=== PATIENT | female | born 1960 | race Hispanic/Latino ===

== ENCOUNTER 2017-08-04 14:51 | Inpatient (IN) | payer OTHER ==
[2017-08-04] MEDS ORDERED: Sodium Chloride 0.9% 500 ML IV STA (16:21)
[2017-08-04 16:52] LABS: BASO # 0.02 K/mm3 (0.0-2.0); BASO % 0.2 % (0.0-3.0); EOS # 0.1 (0.0-0.7); EOS % 1.2 % (1.5-5.0); GRAN # 5.32 (1.4-6.5); GRAN % 58.9 % (50.0-68.0); HEMATOCRIT 38.9 % (36.0-48.0); LYMPH % 33.2 % (22.0-35.0); MEAN CORPUSCULAR HEMOGLOBIN 29.6 pg (25.0-35.0); MEAN CORPUSCULAR HGB CONC 33.7 g/dl (31.0-37.0); MEAN PLATELET VOLUME 10.4 fl (7.0-11.0); MONO # 0.6 (0.1-0.6); MONO % 6.5 % (1.0-6.0); RED CELL DISTRIBUTION WIDTH 13.3 % (11.5-14.5)
[2017-08-04 17:03] LABS: INR 0.97 (0.93-1.08); PARTIAL THROMBOPLASTIN TIME 27.5 Seconds (23.7-30.8)
[2017-08-04 17:04] LABS: ALB/GLOB RATIO 1.7 (1.1-1.8); ALKALINE PHOSPHATASE 74 U/L (38-126); ALT/SGPT 24 U/L (7-56); AST/SGOT 21 U/L (14-36); BILIRUBIN,TOTAL 0.4 mg/dL (0.2-1.3); BLOOD UREA NITROGEN 16 mg/dL (7-21); CALCIUM 9.6 mg/dL (8.4-10.5); CARBON DIOXIDE 23 mmol/L (21-33); CHLORIDE 103 mmol/L (98-107); GFR AFRICAN-AMERICAN > 60; GLUCOSE,RANDOM 141 mg/dL (70-110); LIPASE 108 U/L (23-300); SODIUM 142 mmol/L (132-148); TOTAL PROTEIN 7.2 g/dL (5.8-8.3)
[2017-08-04] MEDS ORDERED: Iohexol 350 MG/100 ML VIAL ONE (17:11)
--- NOTE | 2017-08-04 17:30 | ED PDOC ---
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 Patient's states that the patient has 2 days of diarrhea, after eating take out pizza, but is without diarrhea today. Otherwise: (-) nausea / vomiting, (-) diarrhea today, (-) fever, (-) travel, (- ) sick contacts, (-) recent antibiotic use, (-) hematuria, (-) melena, (-) hematochezia, (-) prior endoscopy / colonoscopy. Has history of prior abdominal surgery - 2 c-sections. Past Medical History - Provider Review Nursing Documentation Reviewed: Yes - Infectious Disease Hx of Infectious Diseases: None - Reproductive Menopause: Yes - Cardiac Hx Cardiac Disorders: Yes (left carotid stenosis) Hx Congestive Heart Failure: No Hx Hypertension: No - Pulmonary Hx Chronic Obstructive Pulmonary Disease (COPD): No - Neurological HX Cerebrovascular Accident: Yes (march 2016, left mca cva w rt hemiparesis) - HEENT Other/Comment: Wears Glasses - Renal Hx Renal Failure: No - Endocrine/Metabolic Hx Diabetes Mellitus Type 1: No Hx Diabetes Mellitus Type 2: Yes Hx Hypothyroidism: No - Hematological/Oncological Hx Cancer: No - Integumentary Hx Dermatological Disorder: No Hx Basal Cell Carcinoma: No Hx Eczema: No Hx Melanoma: No Hx Psoriasis: No Hx Squamous Cell Carcinoma: No - Musculoskeletal/Rheumatological Hx Arthritis: No Hx Rheumatoid Arthritis: No - Gastrointestinal Hx Gastroesophageal Reflux: No - Genitourinary/Gynecological Hx Genitourinary Disorders: No Hx Hematuria: No Hx Incontinence: Yes Hx Sexually Transmitted Diseases: No Hx Urinary Tract Infection: No - Psychiatric Hx Psychophysiologic Disorder: No Hx Anxiety: No Hx Bipolar Disorder: No Hx Depression: No Hx Emotional Abuse: No Hx Hallucinations: No Hx Panic Disorder: No Hx Post Traumatic Stress Disorder: No Hx Psychosis: No Hx Physical Abuse: No Hx Schizophrenia: No Hx Sexual Abuse: No Hx Substance Use: No - Surgical History Other/Comment: - Anesthesia Hx Anesthesia: Yes Hx Anesthesia Reactions: No Family/Social History - Physician Review Nursing Documentation Reviewed: Yes Family/Social History: Other (diverticulitis) Smoking Status: Heavy Smoker > 10 Cigarettes Daily Hx Alcohol Use: No Hx Substance Use: No Allergies/Home Meds Allergies/Adverse Reactions: Allergies No Known Allergies Allergy (Verified 08/04/17 15:44) Home Medications: Home Meds Medication Instructions Recorded Confirmed Atorvastatin [Lipitor] 40 mg PO DAILY 08/11/16 08/04/17 Glipizide [Glipizide Xl] 10 mg PO BID 08/11/16 08/04/17 MetFORMIN [glucoPHAGE] 1,000 mg PO BID 08/11/16 08/04/17 Amantadine [Amantadine HCl] 100 mg PO BID 08/04/17 08/04/17 Baclofen [Lioresal] 10 mg PO TID 08/04/17 08/04/17 Clopidogrel [Plavix] 75 mg PO DAILY 08/04/17 08/04/17 Escitalopram [Lexapro] 10 mg PO DAILY 08/04/17 08/04/17 Pantoprazole [Protonix] 40 mg PO DAILY 08/04/17 08/04/17 Pregabalin [Lyrica] 100 mg PO HS 08/04/17 08/04/17 Review of Systems - Review of Systems Constitutional: Normal. absent: Fatigue, Weight Change, Fevers Respiratory: Normal. absent: SOB, Cough, Sputum Cardiovascular: Normal. absent: Chest Pain, Palpitations, Edema Gastrointestinal: Normal, Abdominal Pain, Diarrhea. absent: Stool Changes, Nausea, Vomiting, Appetite Changes Genitourinary Female: Normal, Dysuria. absent: Frequency, Hematuria Musculoskeletal: Normal. absent: Arthralgias, Back Pain, Neck Pain Skin: Normal. absent: Rash, Pruritis, Skin Lesions Physical Exam - Physical Exam Narrative Physical Exam (Text): 08/04/17 17:32 GENERAL APPEARANCE: Patient is awake, alert, oriented x 3, in no acute distress , laying in bed comfortably. SKIN: Warm, dry; (-) cyanosis. EYES: (-) conjunctival pallor, (-) scleral icterus. ENMT: Mucous membranes dry. NECK: (-) tenderness, (-) stiffness, (-) lymphadenopathy. CHEST AND RESPIRATORY: (-) rales, (-) rhonchi, (-) wheezes; breath sounds equal bilaterally. HEART AND CARDIOVASCULAR: (-) irregularity; (-) murmur, (-) gallop. ABDOMEN AND GI: (+) scar, (-) distention. Bowel sounds active; (+) mild RLQ tenderness, (-) guarding, (-) rebound, (-) palpable masses, (-) CVA tenderness. EXTREMITIES: (+) R arm held in flexion at the elbow joint, (-) tenderness, (-) deformity, (-) edema, (+) distal pulses. NEURO AND PSYCH: Mental status as above; (-) focal findings. deputy director: Pupils equal reactive; EOMI; (-) facial asymmetry; tongue and uvula midline. (+) R sided weakness. (+) Expressive aphasia. Vital Signs Temp Pulse Resp BP Pulse Ox 08/04/17 23:37 60 16 119/67 95 08/04/17 20:07 71 16 137/80 96 08/04/17 19:00 68 16 123/67 96 08/04/17 16:39 65 18 126/68 96 08/04/17 15:20 98.0 F 69 18 131/62 95 Finger Stick Blood Glucose: 171 Medical Decision Making ED Course and Treatment: 08/04/17 17:35 56 year old female, whose past medical history includes diabetes, CVA with residual R sided weakness and expressive aphasia, and spinal stenosis, who presents to the ED for 2-3 day h/o intermittent crampy R mid and RLQ abdominal pain associated with dysuria. Plan: -- Labs -- IV fluids -- Urinalysis -- Reassess and disposition -- CT AP Laboratory results reviewed and are within normal limits. On reevaluation, patient is laying in bed comfortably in no acute distress. Patient has no additional complaints at this time. On exam, lungs are clear to auscultation, cardiac regular rate and rhythm, abdomen remained soft with no tenderness, no guarding, no rebound. CT still pending at this time. Patient went and returned to CT without any incident. On reevaluation, patient is sitting up comfortably in bed, in no distress. CT results reviewed, revealed cholelithiasis and moderate constipation. Results discussed with the patient and helminthologist in great detail. Based on history, exam and diagnostic results plan will be for inpatient observation. Patient and helminthologist agree with current plan for inpatient observation. Call placed to patient's PMD Dr. Roberts, who agree with current plan of care. Bridge orders and consults placed. - Lab Interpretations Lab Results: 08/04/17 16:30 08/04/17 16:30 Lab Results 08/04/17 18:15: Urine Color Yellow, Urine Appearance Clear, Urine pH 6.0, Ur Specific [place] 1.015, Urine Protein Negative, Urine Glucose (UA) Negative, Urine Ketones Negative, Urine Blood Negative, Urine Nitrate Negative, Urine Bilirubin Negative, Urine Urobilinogen 0.2, Ur Leukocyte Esterase Negative 08/04/17 16:30: Sodium 142, Potassium 4.0, Chloride 103, Carbon Dioxide 23, Anion Gap 20, BUN 16, Creatinine 0.5, Est GFR ( Amer) > 60, Est GFR (Non- Af Amer) > 60, Random Glucose 141 H, Calcium 9.6, Total Bilirubin 0.4, AST 21, ALT 24, Alkaline Phosphatase 74, Total Protein 7.2, Albumin 4.5, Globulin 2.7, Albumin/Globulin Ratio 1.7, Lipase 108 08/04/17 16:30: PT 10.5, INR 0.97, APTT 27.5 08/04/17 16:30: WBC 9.0 D, RBC 4.42, Hgb 13.1, Hct 38.9, MCV 88.0, MCH 29.6, MCHC 33.7, RDW 13.3, Plt Count 238, MPV 10.4, Gran % 58.9, Lymph % (Auto) 33.2, [place] % (Auto) 6.5 H, Eos % (Auto) 1.2 L, Baso % (Auto) 0.2, Gran # 5.32, Lymph # 3.0, [place] # 0.6, Eos # 0.1, Baso # 0.02 I have reviewed the lab results: Yes - RAD Interpretation Narrative RAD Interpretations (Text): 08/04/17 18:19 CT A/P w/ IV contrast : FINDINGS: LOWER THORAX: No visible consolidation, pleural effusion, or pneumothorax. LIVER: Unremarkable. GALLBLADDER AND BILE DUCTS: Cholelithiasis. PANCREAS: Unremarkable. SPLEEN: Unremarkable. ADRENALS: Unremarkable. KIDNEYS AND URETERS: The kidneys enhance symmetrically. No hydronephrosis or obstructing calculus identified. VASCULATURE: Atherosclerotic calcifications and plaque. No aortic aneurysm. BOWEL: Stomach is nondistended. Lack of oral contrast limits evaluation for bowel pathology. Bowel loops appear within normal limits of caliber without evidence of obstruction. Moderate constipation. APPENDIX: The appendix appears within normal limits of caliber. No secondary signs of acute appendicitis. PERITONEUM: No significant free fluid. LYMPH NODES: No bulky adenopathy identified. BLADDER: Unremarkable. REPRODUCTIVE: Uterus is present. BONES: Osseous demineralization. Degenerative changes. OTHER FINDINGS: None. IMPRESSION: Cholelithiasis. The appendix appears within normal limits of caliber. No secondary signs of acute appendicitis. Moderate constipation. Radiology Orders: 08/04/17 16:23 ABD & PELVIS IV CONTRAST ONLY [CT] Stat - Medication Orders Current Medication Orders: Amantadine HCl (Amantadine 100 Mg Cap) 100 mg PO BID [facility] Atorvastatin Calcium (Lipitor) 40 mg PO [facility] Last Admin: 08/04/17 23:03 Dose: Baclofen (Lioresal) 10 mg PO TID [facility] Escitalopram Oxalate (Lexapro) 10 mg PO DAILY [facility] Glyburide (Micronase) 5 mg PO 0800,1700 [facility] Ondansetron HCl (Zofran Inj) 4 mg IVP Q4 PRN PRN Reason: Nausea/Vomiting Pantoprazole Sodium (Protonix Ec Tab) 40 mg PO DAILY [facility] Pregabalin (Lyrica) 100 mg PO [facility] Last Admin: 08/04/17 23:04 Dose: Discontinued Medications Acetaminophen (Tylenol 325mg Tab) 650 mg PO ONCE ONE Stop: 08/05/17 00:34 Sodium Chloride (Sodium Chloride 0.9%) 500 mls @ 500 mls/hr IV .Q1H STA Stop: 08/04/17 17:20 Last Admin: 08/04/17 16:26 Dose: 500 mls/hr eMAR Start Stop Document 08/04/17 16:26 SC (Rec: 08/04/17 16:27 SC [id number]) Intravenous Solution Start Date 08/04/17 Start Time 16:26 Iohexol (Omnipaque 350 100 Ml) Confirm Administered Dose 350 mg .ROUTE .STK-MED ONE Stop: 08/04/17 17:12 - PA / SEED ANALYSIS LABORATORY ASSISTANT / Resident Statement /DO has reviewed & agrees with the documentation as recorded. Disposition/Present on Arrival - Present on Arrival Any Indicators Present on Arrival: No History of DVT/PE: No History of Uncontrolled Diabetes: No Urinary Catheter: No History of Decub. Ulcer: No History Surgical Site Infection Following: None - Disposition Have Diagnosis and Disposition been Completed?: Yes Diagnosis: Abdominal pain Disposition: HOSPITALIZED Disposition Time: 19:00 Patient Plan: Observation (inpatient observation ) Patient Problems: Current Active Problems Problem Status Onset Abdominal pain Acute Condition: STABLE
--- NOTE | 2017-08-04 18:01 | CT ---
PROCEDURE: CT Abdomen and Pelvis with contrast HISTORY: RLQ pain COMPARISON: None available. TECHNIQUE: Contrast dose: 100 cc Omnipaque 350 Radiation dose: Total exam DLP = 867.32 MGy-cm. This CT exam was performed using one or more of the following dose reduction techniques: Automated exposure control, adjustment of the mA and/or kV according to patient size, and/or use of iterative reconstruction technique. FINDINGS: LOWER THORAX: No visible consolidation, pleural effusion, or pneumothorax. LIVER: Unremarkable. GALLBLADDER AND BILE DUCTS: Cholelithiasis. PANCREAS: Unremarkable. SPLEEN: Unremarkable. ADRENALS: Unremarkable. KIDNEYS AND URETERS: The kidneys enhance symmetrically. No hydronephrosis or obstructing calculus identified. VASCULATURE: Atherosclerotic calcifications and plaque. No aortic aneurysm. BOWEL: Stomach is nondistended. Lack of oral contrast limits evaluation for bowel pathology. Bowel loops appear within normal limits of caliber without evidence of obstruction. Moderate constipation. APPENDIX: The appendix appears within normal limits of caliber. No secondary signs of acute appendicitis. PERITONEUM: No significant free fluid. LYMPH NODES: No bulky adenopathy identified. BLADDER: Unremarkable. REPRODUCTIVE: Uterus is present. BONES: Osseous demineralization. Degenerative changes. OTHER FINDINGS: None. IMPRESSION: Cholelithiasis. The appendix appears within normal limits of caliber. No secondary signs of acute appendicitis. Moderate constipation.
[2017-08-04 18:32] LABS: URINE BILIRUBIN NEGATIVE (NEGATIVE); URINE BLOOD NEGATIVE (NEGATIVE); URINE GLUCOSE (UA) NEGATIVE (NEGATIVE); URINE KETONE NEGATIVE (NEGATIVE); URINE LEUKOCYTE ESTERASE NEGATIVE Leu/uL (NEGATIVE); URINE PROTEIN NEGATIVE mg/dL (<30 mg/dL); URINE UROBILINOGEN 0.2 E.U./dL (<1 E.U./dL)
[2017-08-04 18:43] LABS: URINE APPEARANCE CLEAR (CLEAR); URINE COLOR YELLOW (YELLOW)
[2017-08-04] MEDS ORDERED: Morphine 4 mg/ml ISec IVP PRN (20:37)
[2017-08-04] MEDS ORDERED: Oxycodone/Acetaminophen 5/325 mg Tab PO PRN (20:37)
[2017-08-05 04:39] VITALS: BMI 30.9
[2017-08-05] MEDS ORDERED: Mineral Oil Enema 135 ml RC ONE (08:30)
--- NOTE | 2017-08-05 08:50 | CON ---
DATE: 08/05/2017 INDICATIONS: Abdominal pain, history of stroke, and hypertension. HISTORY OF PRESENT ILLNESS: This is a 57-year-old woman who is known to me admitted with diarrhea and abdominal discomfort yesterday. This morning, she is resting comfortably in bed without abdominal pain. She feels well. Initially, she was reported to have cramping, mid and right lower quadrant abdominal pain. There had been some diarrhea for a couple of days. There was no chest pain, shortness of breath, orthopnea, PND, syncope, presyncope, dizziness, vertigo, palpitations, edema, claudication, fever, chills, cough, sputum production, hemoptysis, nausea, vomiting, or melena. PAST MEDICAL HISTORY: Complex. She suffered a stroke about 2 years ago, which left her with expressive aphasia and right-sided weakness. She has had extensive physical therapy with only moderate improvement in her residual symptoms. She has a history of diabetes, hypertension, hyperlipidemia, cerebrovascular disease, spinal stenosis. She suffered a fall with a right humeral fracture about a year ago. The CAT scan shows a gallstones. There is no history of rheumatic fever, myocardial infarction, angina, congestive heart failure, arrhythmia, or gout. MEDICATIONS: At the time of admission include Lipitor, glipizide, metformin, amantadine, baclofen, Plavix, Lexapro, Protonix, and Lyrica. ALLERGIES: THERE ARE NO KNOWN MEDICATION ALLERGIES. SOCIAL HISTORY: She lives at home with assistance by her and home-health aid. She does not drink alcohol. She is a former smoker. FAMILY HISTORY: Noncontributory. REVIEW OF SYSTEMS: A 10-point review of systems is somewhat limited because of the expressive aphagia, but she appears to understand questions and answers yes or no appropriately. PHYSICAL EXAMINATION: GENERAL: She is a well-developed woman, lying in bed on 5R, in no acute distress. VITAL SIGNS: Notable for a pulse of 60. She is afebrile. Blood pressure 100/55, respirations 16 to 20, and O2 sat 95% to 96% on room air. HEENT: Exam reveals no neck vein distention, thyromegaly, or carotid bruits. Mucous membranes moist. Conjunctivae pink. NECK: Supple. RESPIRATORY: Lung morales clear. CARDIOVASCULAR: Examination of the heart revealed normal first and second heart sounds. ABDOMEN: Soft. Bowel sounds are present. No mass, organomegaly, tenderness, rebound, or guarding. No CVA tenderness. No palpable abdominal aortic aneurysm. EXTREMITIES: Exam reveals no cyanosis, clubbing, or edema. NEUROLOGIC: She was awake, alert, with expressive aphagia and right hemiparesis. PSYCHIATRIC: Normal as to mood and affect. SKIN: Warm and dry. No rash or cellulitis. LABORATORY AND IMAGING: She did not have an EKG or chest x-ray. Abdominal and pelvis CT scan is noted. It shows gallstones, normal appendix, moderate constipation. Urinalysis was unremarkable. Electrolytes, BUN, blood sugar, LFTs, lipase are all unremarkable. PT, INR and PTT unremarkable. White count normal. Hemoglobin 13.1, hematocrit 38.9, platelet count 238,000. IMPRESSION: The patient is a 57-year-old woman, former smoker, with history of stroke and residual effects, admitted with diarrhea and abdominal pain. The abdominal pain has subsided, and she feels well this morning. PLAN: At this time, I would continue with her usual medications. Aspirin and Plavix were not ordered yet because of the possibility of surgical intervention. This can be resumed once she is cleared by GI and no interventions are planned. She is going to be seen by Dr. Hernandez. I will discuss the case with Dr. Roberts. I will follow along and make appropriate recommendations based on her clinical course. Poli Jiménez MD [email or web address]
[2017-08-05] MEDS: Pantoprazole 40 mg EC Tab PO SCH (10:15)
[2017-08-05] MEDS: POLYETHYLENE GLYCOL 3350 17 GM/Dose PACKET PO SCH ×2 (10:15→17:03)
--- NOTE | 2017-08-05 10:26 | CP.PCM.CON ---
<Javier Gonzalezystal - Last Filed: 08/05/17 12:02> History of Present Illness - History of Present Illness History of Present Illness: Neurology Consult Note for Lucinda Velasquez PGY2 Reason for consult: R residual weakness, confusion This is a 57Y F with PMH HTN, DM, HLD, L carotid stenosis, CVA with R residual deficits and expressive aphasia who came to ED for diarrhea and abdominal pain x 4 days. Patient has aphasia and mostly answers with yes or no. The patient was pointing to her lower abdomen saying it hurts. is at bedside to give further history. He reports that for the past week he has noticed a change in his . He states she seems more confused at times even though it is hard to tell with her aphasia. He also reports that she has been having crying spells which she has not had before and is also not as active as she used to be. She is usually walking around with her cane at home and now she has been sitting in her bed more. He has noticed that she has been incontinent with watery stool for the past 4 days as well. He denies any urinary incontinence/ retention, blood or dark colored stool. CT abdomen/pelvis in ED showed constipation. Of note, patient was found to have L sided carotid stenosis of 95% on last admission. At the time, patient and her decided against surgical intervention. Medical management was done with Aspirin, Lipitor and Plavix. Patient has been going to physical therapy 3 times per week, but has not seen Dr. Hernandez since her stroke last year. PMH: HTN, DM, HLD, L carotid stenosis, CVA with R residual deficits and expressive aphasia PSH: ORIF of humerus s/p fracture Home meds: As per JAN All: NKDA SH: Former smoker- quit years ago. Denies Alcohol or drug use. Lives with who is her pegger [employer] Review of Systems - Constitutional Constitutional: absent: Chills, Fatigue, Fever - EENT Eyes: absent: Change in Vision, Loss of Vision Nose/Mouth/Throat: absent: Dysphagia, Odynophagia - Cardiovascular Cardiovascular: absent: Chest Pain, Dyspnea - Respiratory Respiratory: absent: Cough, Dyspnea, Wheezing - Gastrointestinal Gastrointestinal: Abdominal Pain, Diarrhea. absent: Cramping, Nausea, Vomiting - Genitourinary Genitourinary: absent: Dysuria, Hematuria, Pyuria - Musculoskeletal Musculoskeletal: absent: Abnormal Gait, Numbness, Tingling - Integumentary Integumentary: absent: Change in Hair, Change in Nails - Neurological Neurological: Abnormal Movements, Behavioral Changes (crying spells ), Confusion. absent: Dizziness, Numbness, Loss of Vision, Memory Loss, Sensory Deficit, Syncope, Tingling, Weakness - Psychiatric Psychiatric: Depression. absent: Anxiety Past Patient History - Infectious Disease Hx of Infectious Diseases: None - Past Social History Smoking Status: Former Smoker Alcohol: None Drugs: Denies Home Situation {Lives}: With Family - CARDIAC Hx Cardiac Disorders: Yes (left carotid stenosis) Hx Congestive Heart Failure: No Hx Hypertension: No - PULMONARY Hx Bronchitis: Yes Hx Chronic Obstructive Pulmonary Disease (COPD): No - NEUROLOGICAL HX Cerebrovascular Accident: Yes (march 2016, left mca cva w rt hemiparesis) - HEENT Other/Comment: Wears Glasses - RENAL Hx Renal Failure: No - ENDOCRINE/METABOLIC Hx Diabetes Mellitus Type 1: No Hx Diabetes Mellitus Type 2: Yes Hx Hypothyroidism: No - HEMATOLOGICAL/ONCOLOGICAL Hx Cancer: No - INTEGUMENTARY Hx Dermatological Problems: No Hx Basil Cell: No Hx Eczema: No Hx Melanoma: No Hx Psoriasis: No Hx Squamous Cell: No - MUSCULOSKELETAL/RHEUMATOLOGICAL Hx Arthritis: No Hx Falls: Yes Hx Fractures: Yes (right humerus fx) - GASTROINTESTINAL Hx Gastroesophageal Reflux: No - GENITOURINARY/GYNECOLOGICAL Hx Genitourinary Disorders: No Hx Hematuria: No Hx Incontinence: Yes Hx Sexually Transmitted Disorders: No Hx Urinary Tract Infection: No - PSYCHIATRIC Hx Psychophysiologic Disorder: No Hx Anxiety: Yes Hx Bipolar Disorder: No Hx Depression: No Hx Emotional Abuse: No Hx Hallucinations: No Hx Panic Symptoms: No Hx Post Traumatic Stress Disorder: No Hx Psychosis: No Hx Physical Abuse: No Hx Schizophrenia: No Hx Sexual Abuse: No Hx Substance Use: No - SURGICAL HISTORY Other/Comment: - ANESTHESIA Hx Anesthesia: Yes Hx Anesthesia Reactions: No Meds Allergies/Adverse Reactions: Allergies Allergy/AdvReac Type Severity Reaction Status Date / Time No Known Allergies Allergy Verified 08/04/17 15:44 - Medications Medications: Current Medications Amantadine HCl (Amantadine 100 Mg Cap) 100 mg PO BID [facility] Atorvastatin Calcium (Lipitor) 40 mg PO HS [facility] Last Admin: 08/04/17 23:03 Dose: Not Given Baclofen (Lioresal) 10 mg PO TID [facility] Clopidogrel Bisulfate (Plavix) 75 mg PO DAILY [facility] Escitalopram Oxalate (Lexapro) 10 mg PO DAILY [facility] Glyburide (Micronase) 10 mg PO 0800,1700 [facility] Lactulose (Enulose) 30 gm PO HS [facility] Ondansetron HCl (Zofran Inj) 4 mg IVP Q4 PRN PRN Reason: Nausea/Vomiting Pantoprazole Sodium (Protonix Ec Tab) 40 mg PO DAILY [facility] Polyethylene Glycol (Miralax) 17 gm PO BID [facility] Pregabalin (Lyrica) 100 mg PO HS [facility] Last Admin: 08/04/17 23:04 Dose: Not Given Physical Exam - Constitutional Appears: No Acute Distress - Head Exam Head Exam: ATRAUMATIC, NORMAL INSPECTION, NORMOCEPHALIC - Eye Exam Eye Exam: Normal appearance, PERRL Pupil Exam: NORMAL ACCOMODATION, PERRL - ENT Exam ENT Exam: Mucous Membranes Moist - Respiratory Exam Respiratory Exam: Clear to Auscultation Bilateral, NORMAL BREATHING PATTERN - Cardiovascular Exam Cardiovascular Exam: REGULAR RHYTHM, +S1, +S2. absent: Gallop, Rubs, Systolic Murmur - GI/Abdominal Exam GI & Abdominal Exam: Normal Bowel Sounds, Soft, Tenderness (LLQ). absent: Guarding, Mass - Extremities Exam Extremities exam: Positive for: normal inspection. Negative for: calf tenderness, pedal edema - Expanded Neurological Exam Expanded Speech: Expressive Aphasia Cranial nerves: EOM's Intact: Abnormal Right, Facial Palsey w/o Forehead Movement: Abnormal Right, Facial Sensation: Normal, Nystagmus: Abnormal Right Cerebellar Function: Finger to Nose: Normal Sensory exam: Lower Extremity 2 Point Discrimination: Normal, Lower Extremity Light Touch: Normal, Upper Extremity 2 Point Discrimination: Abnormal Right, Upper Extremity Light Touch: Abnormal Right Neuro motor strength exam: Left Upper Extremity: 5, Right Upper Extremity: 0, Left Lower Extremity: 5, Right Lower Extremity: 4 - Psychiatric Exam Psychiatric exam: Normal Affect, Normal Mood - Skin Skin Exam: Dry, Intact, Normal Color, Warm Results - Vital Signs Recent Vital Signs: Last Vital Signs Temp 98 F 08/05/17 07:35 Pulse 60 08/05/17 07:35 Resp 20 08/05/17 07:35 BP 100/55 L 08/05/17 07:35 Pulse Ox 95 09/26/17 07:35 - Labs Result Diagrams: 08/04/17 16:30 08/04/17 16:30 Labs: Laboratory Results - last 24 hr 08/05/17 08/05/17 01:59 07:21 POC Glucose (mg/dL) 145 H 126 H Assessment & Plan - Assessment and Plan (Free Text) Assessment: This is a 57Y F with PMH HTN, DM, HLD, L carotid stenosis, CVA with R residual deficits and expressive aphasia who came to ED for diarrhea and abdominal pain x 4 days. Patient noted to have increased crying spells and confusion as per . This can be secondary to pseudobulbar affect. Patient has L carotid stenosis of 95% seen on CTA in 2016 and surgery was refused at the time. Patient and wanted medical management. They have not since followed up and are now considering having a vascular surgery evaluation. Plan: - Will check HgbA1c - Maintain glucose between 140-180s - Will obtain head and neck MRA - Vascular surgery consulted - will follow up recommendations - Continue physical therapy - Continue Plavix and Lipitor Case seen, discussed and reviewed with attending, Dr. Hernandez. Lucinda Gonzalez PGY2 - Date & Time Date: 08/05/17 Time: 09:00 <Arvind Hernandez - Last Filed: 08/05/17 14:20> Meds - Medications Medications: Current Medications Amantadine HCl (Amantadine 100 Mg Cap) 100 mg PO BID [facility] Last Admin: 08/05/17 10:15 Dose: 100 mg Atorvastatin Calcium (Lipitor) 40 mg PO HS [facility] Last Admin: 08/04/17 23:03 Dose: Not Given Baclofen (Lioresal) 10 mg PO TID [facility] Last Admin: 08/05/17 13:20 Dose: 10 mg Clopidogrel Bisulfate (Plavix) 75 mg PO DAILY [facility] Last Admin: 08/05/17 10:15 Dose: 75 mg Escitalopram Oxalate (Lexapro) 10 mg PO DAILY [facility] Last Admin: 08/05/17 10:15 Dose: 10 mg Glyburide (Micronase) 10 mg PO 0800,1700 [facility] Lactulose (Enulose) 30 gm PO [facility] Ondansetron HCl (Zofran Inj) 4 mg IVP Q4 PRN PRN Reason: Nausea/Vomiting Pantoprazole Sodium (Protonix Ec Tab) 40 mg PO DAILY [facility] Last Admin: 08/05/17 10:15 Dose: 40 mg Polyethylene Glycol (Miralax) 17 gm PO BID [facility] Last Admin: 08/05/17 10:15 Dose: 17 gm Pregabalin (Lyrica) 100 mg PO HS [facility] Last Admin: 08/04/17 23:04 Dose: Not Given Results - Vital Signs Recent Vital Signs: Last Vital Signs Temp 98 F 08/05/17 07:35 Pulse 60 08/05/17 07:35 Resp 20 08/05/17 07:35 BP 100/55 L 08/05/17 07:35 Pulse Ox 95 08/05/17 07:35 - Labs Result Diagrams: 08/04/17 16:30 08/04/17 16:30 Labs: Laboratory Results - last 24 hr 08/05/17 08/05/17 08/05/17 01:59 07:21 11:30 POC Glucose (mg/dL) 145 H 126 H 166 H Attending/Attestation - Attestation I have personally seen and examined this patient.: Yes I have fully participated in the care of the patient.: Yes I have reviewed all pertinent clinical information: Yes
[2017-08-05] MEDS ORDERED: Gadodiamide 287 MG/ML VIAL (20ML) IV ONE (13:39)
--- NOTE | 2017-08-05 13:47 | CP.PCM.CON ---
History of Present Illness - History of Present Illness History of Present Illness: PGY1 Note for Dr. Townsend HPI: We are being consulted for L. Carotid Stenosis. Patient is a 57 year old female who presents to the ER with a 3 day history of crampy RLQ pain pain associated with dysuria and diarrhea. The diarrhea has since stopped. The patient denies any N/V/F. The patient had a CVA in March of 2016 the resulted in R. sided weakness greater in the upper extremity. The patient also has residual expressive aphasia and only answers in yes or no questions but seems to comprehend well. She has a good quality of life as she does her own grocery shopping and ambulates with the use of a cane. She completes her ADLs with minimal assistance. ROS: per HPI PMH: * DM * HTN * HLD * CVA in 03/2016 resulting in R. sided weakness and expressive aphasia PSH: * SH: * Lives with her and daughter * walks with a cane * ADLs with minimal assistance * former smoker * denies alcohol or illigal drug use Meds: see mar Allergies: none Review of Systems - Constitutional Constitutional: As Per HPI - EENT Eyes: As Per HPI Ears: As Per HPI Nose/Mouth/Throat: As Per HPI - Breasts Breasts: As Per HPI - Cardiovascular Cardiovascular: As Per HPI - Respiratory Respiratory: As Per HPI - Gastrointestinal Gastrointestinal: As Per HPI - Genitourinary Genitourinary: As Per HPI - Reproductive: Female Reproductive:Female: As Per HPI - Menstruation Menstruation: As Per HPI - Musculoskeletal Musculoskeletal: As Per HPI - Integumentary Integumentary: As Per HPI - Neurological Neurological: As Per HPI - Psychiatric Psychiatric: As Per HPI - Endocrine Endocrine: As Per HPI - Hematologic/Lymphatic Hematologic: As Per HPI Past Patient History - Infectious Disease Hx of Infectious Diseases: None - Past Social History Smoking Status: Former Smoker Alcohol: None Drugs: Denies Home Situation {Lives}: With Family - CARDIAC Hx Cardiac Disorders: Yes (left carotid stenosis) Hx Congestive Heart Failure: No Hx Hypertension: No - PULMONARY Hx Bronchitis: Yes Hx Chronic Obstructive Pulmonary Disease (COPD): No - NEUROLOGICAL HX Cerebrovascular Accident: Yes (march 2016, left mca cva w rt hemiparesis) - HEENT Other/Comment: Wears Glasses - RENAL Hx Renal Failure: No - ENDOCRINE/METABOLIC Hx Diabetes Mellitus Type 1: No Hx Diabetes Mellitus Type 2: Yes Hx Hypothyroidism: No - HEMATOLOGICAL/ONCOLOGICAL Hx Cancer: No - INTEGUMENTARY Hx Dermatological Problems: No Hx Basil Cell: No Hx Eczema: No Hx Melanoma: No Hx Psoriasis: No Hx Squamous Cell: No - MUSCULOSKELETAL/RHEUMATOLOGICAL Hx Arthritis: No Hx Falls: Yes Hx Fractures: Yes (right humerus fx) - GASTROINTESTINAL Hx Gastroesophageal Reflux: No - GENITOURINARY/GYNECOLOGICAL Hx Genitourinary Disorders: No Hx Hematuria: No Hx Incontinence: Yes Hx Sexually Transmitted Disorders: No Hx Urinary Tract Infection: No - PSYCHIATRIC Hx Psychophysiologic Disorder: No Hx Anxiety: Yes Hx Bipolar Disorder: No Hx Depression: No Hx Emotional Abuse: No Hx Hallucinations: No Hx Panic Symptoms: No Hx Post Traumatic Stress Disorder: No Hx Psychosis: No Hx Physical Abuse: No Hx Schizophrenia: No Hx Sexual Abuse: No Hx Substance Use: No - SURGICAL HISTORY Other/Comment: - ANESTHESIA Hx Anesthesia: Yes Hx Anesthesia Reactions: No Meds Allergies/Adverse Reactions: Allergies Allergy/AdvReac Type Severity Reaction Status Date / Time No Known Allergies Allergy Verified 08/04/17 15:44 - Medications Medications: Current Medications Amantadine HCl (Amantadine 100 Mg Cap) 100 mg PO BID [facility] Last Admin: 08/05/17 10:15 Dose: 100 mg Atorvastatin Calcium (Lipitor) 40 mg PO HS [facility] Last Admin: 08/04/17 23:03 Dose: Not Given Baclofen (Lioresal) 10 mg PO TID [facility] Last Admin: 08/05/17 13:20 Dose: 10 mg Clopidogrel Bisulfate (Plavix) 75 mg PO DAILY [facility] Last Admin: 08/05/17 10:15 Dose: 75 mg Escitalopram Oxalate (Lexapro) 10 mg PO DAILY [facility] Last Admin: 08/05/17 10:15 Dose: 10 mg Glyburide (Micronase) 10 mg PO 0800,1700 [facility] Lactulose (Enulose) 30 gm PO [facility] Ondansetron HCl (Zofran Inj) 4 mg IVP Q4 PRN PRN Reason: Nausea/Vomiting Pantoprazole Sodium (Protonix Ec Tab) 40 mg PO DAILY [facility] Last Admin: 08/05/17 10:15 Dose: 40 mg Polyethylene Glycol (Miralax) 17 gm PO BID [facility] Last Admin: 09/26/17 10:15 Dose: 17 gm Pregabalin (Lyrica) 100 mg PO HS [facility] Last Admin: 08/04/17 23:04 Dose: Not Given Physical Exam - Constitutional Appears: Non-toxic Additional comments: expressive aphasia, responds to questions yes or no, gets worked up easily - Head Exam Head Exam: ATRAUMATIC, NORMAL INSPECTION, NORMOCEPHALIC - Eye Exam Eye Exam: EOMI - ENT Exam ENT Exam: Mucous Membranes Moist - Neck Exam Neck exam: Positive for: Normal Inspection - Respiratory Exam Respiratory Exam: Clear to Auscultation Bilateral - Cardiovascular Exam Cardiovascular Exam: REGULAR RHYTHM - GI/Abdominal Exam GI & Abdominal Exam: Normal Bowel Sounds, Soft. absent: Distended, Tenderness - Extremities Exam Extremities exam: Positive for: normal capillary refill, pedal pulses present. Negative for: joint swelling, tenderness - Back Exam Back exam: CVA tenderness (L), CVA tenderness (R) - Neurological Exam Neurological exam: Alert, CN II-XII Intact, Motor Sensory Deficit (0/5 R. UE, 3/ 5 LLE, no sensory deficit), Oriented x3 - Expanded Neurological Exam Expanded Neurological exam: Expressive Aphasia Patient oriented to: person, place, time Speech: Expressive Aphasia Cranial nerves: EOM's Intact: Normal, Facial Palsey w/Forehead Movement: Normal , Facial Palsey w/o Forehead Movement: Normal, Facial Sensation: Normal, Tongue Deviation: Normal Ataxia: No Sensory exam: Lower Extremity Light Touch: Normal, Upper Extremity Light Touch: Normal Neuro motor strength exam: Left Upper Extremity: 5, Right Upper Extremity: 0, Left Lower Extremity: 5, Right Lower Extremity: 3 - Psychiatric Exam Psychiatric exam: Normal Affect, Normal Mood - Skin Skin Exam: Dry, Intact, Normal Color, Warm Results - Vital Signs Recent Vital Signs: Last Vital Signs Temp 98 F 08/05/17 07:35 Pulse 60 08/05/17 07:35 Resp 20 08/05/17 07:35 BP 100/55 L 08/05/17 07:35 Pulse Ox 95 08/05/17 07:35 - Labs Result Diagrams: 08/04/17 16:30 08/04/17 16:30 Labs: Laboratory Results - last 24 hr 08/05/17 08/05/17 08/05/17 01:59 07:21 11:30 POC Glucose (mg/dL) 145 H 126 H 166 H Assessment & Plan - Assessment and Plan (Free Text) Assessment: 57 y/o female with L. Carotid Stenosis * Follow up carotid Doppler and MRA of head and neck * Prior CTA showed a >95% stenosis of L carotid bifurcation and prox ICA * If stenosis is not completely occluding, will proceed with CEA * Further managment per medical team * ALLEN Jalloh DO PGY1 - Date & Time Date: 08/05/17 Time: 14:04
--- NOTE | 2017-08-05 15:18 | US ---
PROCEDURE: Bilateral carotid artery duplex ultrasound HISTORY: Carotid stenosis PHYSICIAN(S): Zachery Castro MD. TECHNIQUE: Duplex sonography and color-flow Doppler were used to evaluate the carotid bifurcations and limited segments of the vertebral arteries bilaterally. FINDINGS: There is moderate smooth focal heterogeneous plaque noted at the carotid bifurcations bilaterally. The peak systolic velocity in the proximal right internal carotid artery is 93 cm/sec. This corresponds to a 20 to 39% proximal right ICA stenosis. Normal systolic velocities are noted in the proximal right external carotid artery. There is blunted antegrade flow in the small right vertebral artery The proximal left internal carotid artery is acutely thrombosed by sonographic criteria. No flow is demonstrated. The left external carotid artery is hypertrophied. There is antegrade flow in the large left vertebral artery IMPRESSION: 1. Acutely thrombosed proximal left internal carotid artery. No evidence of a string sign is demonstrated. 2. 20-39 percent proximal right ICA stenosis. 3. Antegrade flow in the large left vertebral artery. Blunted antegrade flow in the small right vertebral artery.
--- NOTE | 2017-08-05 15:18 | MRI ---
PROCEDURE: Magnetic Resonance Angiography Brain HISTORY: History of CVA/carotid stenosis COMPARISON: Duplex Doppler ultrasound from 08/05/2017. TECHNIQUE: 3D time of flight MR angiography of the intracranial arteries was performed. Rotating maximum intensity projection images were generated. FINDINGS: INTERNAL CAROTID ARTERIES: There is absent flow related signal in the left intracranial internal carotid artery. The right intracranial internal carotid artery is widely patent. The the right sided skull base, petrous, cavernous and supraclinoid segments are widely patient. ANTERIOR CEREBRAL ARTERIES: The right A1 segment is widely patent. The proximal left A1 segment is diminutive with absent flow. Though A2 segments are widely patent. Smaller distal branches unremarkable, as visualized. MIDDLE CEREBRAL ARTERIES: The right M1 and M2 segments are widely patent. The left M1 segment is diminutive and the distal perisylvian branches are attenuated. The right M2 perisylvian branches are normal in appearance. POSTERIOR CIRCULATION: Basilar Artery: Normal in caliber. Distal Vertebral Arteries: There is absent flow related signal in the right vertebral artery. The left vertebral artery is dominant. Posterior Cerebral Arteries: The posterior complicating and posterior cerebral arteries are symmetric and normal in appearance. Posterior Inferior Cerebellar Arteries: The right PICA is not visualized. The left PICA is normal. ANEURYSM/ VASCULAR MALFORMATIONS: None. OTHER FINDINGS: None. IMPRESSION: 1. Occlusion of the left intracranial internal carotid artery. 2. Diminutive left A1 segment and middle cerebral artery with attenuation of distal branches. 3. Absent flow related signal in the right intracranial vertebral artery could be related to severe hypoplasia or thrombosis.
--- NOTE | 2017-08-05 15:42 | MRI ---
PROCEDURE: MR Angiography of the neck with and without contrast HISTORY: carotid stenosis COMPARISON: Duplex Doppler examination from 08/05/2017 TECHNIQUE: Contrast enhanced and [id number] angiography of the neck was performed. Rotating 3D maximum intensity projection images of the cervical carotid and vertebral arteries were generated. FINDINGS: There is a two vessel aortic arch with common origin of the innominate and left common carotid arteries. RIGHT CAROTID ARTERIES: Common Carotid Artery: Normal. Carotid Bifurcation: Normal. Internal Carotid Artery:There are atherosclerotic plaques in the proximal internal carotid artery without hemodynamically significant stenosis. . External Carotid Artery (proximal branches): Normal. LEFT CAROTID ARTERIES: Common Carotid Artery: Normal. Carotid Bifurcation: Normal. Internal Carotid Artery:There is complete occlusion of the internal carotid artery at its origin. External Carotid Artery (proximal branches): Normal. VERTEBRAL ARTERIES: Right Vertebral Artery: There is absent flow related enhancement in the vertebral artery. Left Vertebral Artery: There is severe stenosis at the origin. Otherwise, the remaining cervical segment of the vertebral artery is widely patent and dominant. OTHER FINDINGS: None. IMPRESSION: 1. Complete occlusion of the left internal carotid artery at its origin. 2. Complete occlusion of the right vertebral artery at its origin. 3. Mild atherosclerotic plaques in the right proximal internal carotid artery without evidence of hemodynamically significant stenosis. 4. Severe stenosis at the left vertebral artery origin. The cervical segment of the left vertebral artery is dominant and widely patent.
--- NOTE | 2017-08-05 19:46 | HP ---
DATE: 08/05/2017 HISTORY OF PRESENT ILLNESS: This is a 57-year-old female who is coming into the hospital with complaints of abdominal pain. She has been having loose stools. The patient has a history of stroke with right-sided residual weakness. She has an expressive aphasia. The patient has not been eating well. She has been having crampy right lower quadrant abdominal pain. She has no fevers or chills. No nausea. No vomiting. No dysuria or frequency. No nocturia. Limited review of symptoms because of the patient's difficulty with speech, but she does not have any other complaints. I did speak to the patient's to get information about the patient. PAST MEDICAL HISTORY: Left CVA with right-sided hemiplegia, dysarthria, diabetes type 2, dyslipidemia, left internal carotid artery stenosis. PAST SURGICAL HISTORY: . SOCIAL HISTORY: She was a smoker. She quit smoking. She denies alcohol. HOME MEDICATIONS: Her home medications have been reviewed on the medical reconciliation form. PHYSICAL EXAMINATION: VITAL SIGNS: The patient has a temperature of 97.4, pulse is 62, blood pressure 136/53, respirations 20. Height is 5 feet 3 inches, weight is 175 pounds, BMI is 31. GENERAL: The patient lying in bed, uncomfortable, and in no acute distress. HEENT: Atraumatic and normocephalic. Anicteric sclerae. Moist mucosa. [place] conjunctivae. No oral lesions. NECK: No JVD, anterior and posterior adenopathy, thyromegaly, or bruits. CARDIOVASCULAR: S1 and S2 regular. No murmur, rubs, or gallop. LUNGS: Clear to auscultation bilaterally. No wheezes, rales, or rhonchi. ABDOMEN: Bowel sounds are positive. Soft, nontender and nondistended. No hepatosplenomegaly. No rebound and no guarding. EXTREMITIES: No cyanosis, clubbing, or edema. NEUROLOGIC: No facial asymmetry. Tongue is midline. No uvula deviation. Power is 5/5 upper extremity and lower extremity. Sensation intact in upper extremity and lower extremity. There is right-sided arm weakness that is 2/5, the right-sided leg weakness is 4/5. PSYCHIATRIC: She is awake, alert and oriented x3. No anxiety or depression. She has normal affect. GENITOURINARY: No CVA tenderness. VASCULAR: 2+ pulses in the carotid pulses and pedal pulses. SKIN: No erythema or nodules. SPINE: Shows normal curvature. EXTREMITIES: No cyanosis and clubbing, no edema. IMAGING DATA: CT of the abdomen and pelvis done shows cholelithiasis. The appendix appears normal. LABORATORY DATA: They have been reviewed. White count is 9.0. Chemistry shows a creatinine of 0.5. The sugar, fingerstick is 126. ASSESSMENT: 1. Abdominal pain. 2. Constipation. 3. Diabetes type 2. 4. Spinal stenosis. 5. Dyslipidemia. 6. Dysarthria. PLAN: The patient is going to be admitted to the hospital. The patient is on Lexapro for her anxiety. She is having abdominal pain. I will get Dr. Shukla to evaluate the patient. The patient does have significant constipation. The patient is on Micronase for her diabetes. The patient is on Plavix and not on aspirin, this will be continued. I will get Dr. Hernandez to evaluate the patient. I am not sure whether the is going to be helpful at this point. I will also get Dr. Jiménez to evaluate the patient. No further intervention as per Dr. Jiménez. The patient is on heart-healthy diet. I will change that to a carbohydrate consistent diet. I did speak to the patient's to give him an update on the patient's diagnosis and plan of care. We will give laxatives as well as an enema for the patient to move her bowels. Aristides Roberts MD
--- NOTE | 2017-08-05 20:34 | CON ---
DATE: REASON FOR CONSULTATION: Left carotid stenosis, status post left hemispheric stroke. HISTORY OF PRESENT ILLNESS: The patient is a 57-year-old woman, ex-smoker, who was admitted this time for GI distress and dehydration. Of note, in the past history, she had a left hemispheric stroke in 03/2016, which resulted in aphasia and right hemiparesis. With vigorous rehabilitation, now she only has expressive aphasia and she can walk with a cane. Her right hand, however, remained nonfunctional. PAST MEDICAL HISTORY: The patient was a heavy smoker, stopped last year. She had a history of diabetes, hypertension, and hyperlipidemia. She suffered a fall with her right humeral fracture about a year ago. MEDICATIONS: Include Lipitor, glipizide, metformin, amantadine, and Plavix. REVIEW OF SYSTEMS: A 10-point review of systems is limited due to her expressive aphasia. PHYSICAL EXAMINATION: GENERAL: Showed a well-appearing woman, conversing only with yes or no; however, she appeared to understand all the questions. VITAL SIGNS: Shows a pulse of 60, which is regular, blood pressure is 100/55. HEENT: She has a mild right facial droop. Negative. NECK: Supple. There is no carotid bruit. CARDIOVASCULAR: Showed regular rhythm. CHEST: Clear. ABDOMEN: Soft. EXTREMITIES: She has palpable femoral and DP pulse. NEUROLOGICAL: Her right hand is contracted in a flexion position. There is decrease in strength of her proximal muscle. She can walk with a cane with circumduction of the right leg. She is paralyzed on the right arm. Her right leg also has 4/5 strength. IMPRESSION: The patient is a 57-year-old woman with a history of stroke who was admitted for gastrointestinal distress. PLAN: At this point, her carotid workup should be repeated. Should the left carotid be open, carotid endarterectomy will be recommended. Silvia Townsend MD
--- NOTE | 2017-08-06 06:58 | CP.PCM.PN ---
<Sayra Gonzalez - Last Filed: 08/06/17 13:10> Subjective - Date & Time of Evaluation Date of Evaluation: 08/06/17 Time of Evaluation: 06:57 - Subjective Subjective: Neurology Progress Note for Lucinda Velasquez PGY2 Patient seen and examined at bedside. There were no acute overnight events as per nursing. She reports feeling better today. Her abdominal pain has decreased , but still feels constipated. She denies having any new numbness/tingling, vision changes, weakness, CP or SOB. Patient reports that her mom had a stroke in the past with L sided weakness. Objective - Vital Signs/Intake and Output Vital Signs (last 24 hours): Temp Pulse Resp BP Pulse Ox 98 F 60 20 100/55 L 95 08/05/17 07:35 08/05/17 07:35 08/05/17 07:35 08/05/17 07:35 08/05/17 07:35 Intake and Output: 08/05/17 08/06/17 18:59 06:59 Intake Total 720 Balance 720 - Medications Medications: Current Medications Amantadine HCl (Amantadine 100 Mg Cap) 100 mg PO BID [facility] Last Admin: 08/05/17 17:04 Dose: 100 mg Aspirin (Ecotrin) 81 mg PO DAILY [facility] Atorvastatin Calcium (Lipitor) 40 mg PO HS [facility] Last Admin: 08/05/17 21:56 Dose: 40 mg Baclofen (Lioresal) 10 mg PO TID [facility] Last Admin: 08/05/17 17:03 Dose: 10 mg Clopidogrel Bisulfate (Plavix) 75 mg PO DAILY [facility] Last Admin: 08/05/17 10:15 Dose: 75 mg Escitalopram Oxalate (Lexapro) 10 mg PO DAILY [facility] Last Admin: 08/05/17 10:15 Dose: 10 mg Glyburide (Micronase) 10 mg PO 0800,1700 [facility] Last Admin: 08/05/17 17:04 Dose: 10 mg Lactulose (Enulose) 30 gm PO HS [facility] Last Admin: 08/05/17 21:55 Dose: 30 gm Ondansetron HCl (Zofran Inj) 4 mg IVP Q4 PRN PRN Reason: Nausea/Vomiting Pantoprazole Sodium (Protonix Ec Tab) 40 mg PO DAILY [facility] Last Admin: 08/05/17 10:15 Dose: 40 mg Polyethylene Glycol (Miralax) 17 gm PO BID [facility] Last Admin: 08/05/17 17:03 Dose: 17 gm Pregabalin (Lyrica) 100 mg PO HS [facility] Last Admin: 08/05/17 21:56 Dose: 100 mg Sitagliptin Phosphate (Januvia) 100 mg PO DAILY [facility] - Labs Labs: PT 10.5 Seconds (9.9-11.8) 08/04/17 16:30 INR 0.97 (0.93-1.08) 08/04/17 16:30 APTT 27.5 Seconds (23.7-30.8) 08/04/17 16:30 - Constitutional Appears: No Acute Distress - Head Exam Head Exam: ATRAUMATIC, NORMAL INSPECTION, NORMOCEPHALIC - Eye Exam Eye Exam: Normal appearance, PERRL Pupil Exam: NORMAL ACCOMODATION, PERRL - ENT Exam ENT Exam: Mucous Membranes Moist - Neck Exam Neck Exam: Full ROM, Normal Inspection. absent: Lymphadenopathy - Respiratory Exam Respiratory Exam: Clear to Ausculation Bilateral, NORMAL BREATHING PATTERN. absent: Rales, Rhonchi, Wheezes - Cardiovascular Exam Cardiovascular Exam: REGULAR RHYTHM, +S1, +S2. absent: Gallop, Rubs, Murmur - Neurological Exam Neurological Exam: Alert, Awake, CN II-XII Intact Neuro motor strength exam: Left Upper Extremity: 5, Right Upper Extremity: 0, Left Lower Extremity: 5, Right Lower Extremity: 4 Additional comments: R sided facial droop as well as nonfunctional R forearm/hand. 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 Patient noted to have increased crying spells and confusion as per . This can be secondary to pseudobulbar affect. Patient has L carotid stenosis of 95% seen on CTA in 2016 and surgery was refused at the time. Neck MRA showed complete occlusion of internal carotid artery and R vertebral artery, mild atherosclerotic plaques in R proximal carotid artery without significant stenosis, and severe stenosis of L vertebral artery origin with cervical segment being dominant and widely patent. Head MRA showed diminutive L A1 segment and middle cerebral artery with attenuation of distal branches. Carotid U/S showed complete occlusion of L carotid and 20-39% stenosis of the R carotid. Plan: - Maintain glucose between 140-180s - As per surgery- no surgical intervention needed at this time - ASA, Plavix and Lipitor - Continue physical therapy as well as speech therapy Patient will need to follow up with neurology as outpatient. Dr. Hernandez and I had an extensive conversation with the patient, her and her sister on the importance of physical therapy, speech therapy as well as diet and exercise. Patient and family verbalized agreement with recommendations and the plan Case seen, discussed and reviewed with attending, Dr. Hernandez. Lucinda Gonzalez PGY2 <Arvind Hernandez - Last Filed: 08/06/17 13:43> Objective - Vital Signs/Intake and Output Vital Signs (last 24 hours): Temp Pulse Resp BP Pulse Ox 98.2 F 60 18 106/56 L 94 L 08/06/17 07:30 08/06/17 07:30 08/06/17 07:30 08/06/17 07:30 08/06/17 07:30 Intake and Output: 08/06/17 08/06/17 06:59 18:59 Intake Total 720 Balance 720 - Medications Medications: Current Medications Amantadine HCl (Amantadine 100 Mg Cap) 100 mg PO BID [facility] Last Admin: 08/06/17 09:08 Dose: 100 mg Aspirin (Ecotrin) 81 mg PO DAILY [facility] Last Admin: 08/06/17 09:08 Dose: 81 mg Atorvastatin Calcium (Lipitor) 40 mg PO [facility] Last Admin: 08/05/17 21:56 Dose: 40 mg Baclofen (Lioresal) 10 mg PO TID [facility] Last Admin: 08/06/17 13:05 Dose: 10 mg Clopidogrel Bisulfate (Plavix) 75 mg PO DAILY [facility] Last Admin: 08/06/17 09:08 Dose: 75 mg Escitalopram Oxalate (Lexapro) 10 mg PO DAILY [facility] Last Admin: 08/06/17 09:08 Dose: 10 mg Glyburide (Micronase) 10 mg PO 0800,1700 [facility] Last Admin: 08/06/17 09:08 Dose: 10 mg Lactulose (Enulose) 30 gm PO [facility] Last Admin: 08/05/17 21:55 Dose: 30 gm Ondansetron HCl (Zofran Inj) 4 mg IVP Q4 PRN PRN Reason: Nausea/Vomiting Pantoprazole Sodium (Protonix Ec Tab) 40 mg PO DAILY [facility] Last Admin: 08/06/17 09:08 Dose: 40 mg Polyethylene Glycol (Miralax) 17 gm PO BID [facility] Last Admin: 08/06/17 09:08 Dose: 17 gm Pregabalin (Lyrica) 100 mg PO HS [facility] Last Admin: 08/05/17 21:56 Dose: 100 mg Sitagliptin Phosphate (Januvia) 100 mg PO DAILY [facility] Last Admin: 08/06/17 09:08 Dose: 100 mg - Labs Labs: PT 10.5 Seconds (9.9-11.8) 08/04/17 16:30 INR 0.97 (0.93-1.08) 08/04/17 16:30 APTT 27.5 Seconds (23.7-30.8) 08/04/17 16:30 Attending/Attestation - Attestation I have personally seen and examined this patient.: Yes I have fully participated in the care of the patient.: Yes I have reviewed all pertinent clinical information, including history, physical exam and plan: Yes
--- NOTE | 2017-08-06 08:20 | CP.PCM.PN ---
Subjective - Date & Time of Evaluation Date of Evaluation: 08/06/17 Time of Evaluation: 08:15 - Subjective Subjective: PGY1 Note for Dr. Townsend HPI: Patient seen and examined at bedside. Doing well with no complaints at this time. Explained her stenosis is 100% and therefore will not require any surgical intervention. Patient understands and all of her questions were answered. Objective - Vital Signs/Intake and Output Vital Signs (last 24 hours): Temp Pulse Resp BP Pulse Ox 98.2 F 60 18 106/56 L 94 L 08/06/17 07:30 08/06/17 07:30 08/06/17 07:30 08/06/17 07:30 08/06/17 07:30 Intake and Output: 08/06/17 08/06/17 06:59 18:59 Intake Total 720 Balance 720 - Medications Medications: Current Medications Amantadine HCl (Amantadine 100 Mg Cap) 100 mg PO BID [facility] Last Admin: 08/05/17 17:04 Dose: 100 mg Aspirin (Ecotrin) 81 mg PO DAILY [facility] Atorvastatin Calcium (Lipitor) 40 mg PO [facility] Last Admin: 08/05/17 21:56 Dose: 40 mg Baclofen (Lioresal) 10 mg PO TID [facility] Last Admin: 08/05/17 17:03 Dose: 10 mg Clopidogrel Bisulfate (Plavix) 75 mg PO DAILY [facility] Last Admin: 08/05/17 10:15 Dose: 75 mg Escitalopram Oxalate (Lexapro) 10 mg PO DAILY [facility] Last Admin: 08/05/17 10:15 Dose: 10 mg Glyburide (Micronase) 10 mg PO 0800,1700 [facility] Last Admin: 08/05/17 17:04 Dose: 10 mg Lactulose (Enulose) 30 gm PO [facility] Last Admin: 08/05/17 21:55 Dose: 30 gm Ondansetron HCl (Zofran Inj) 4 mg IVP Q4 PRN PRN Reason: Nausea/Vomiting Pantoprazole Sodium (Protonix Ec Tab) 40 mg PO DAILY [facility] Last Admin: 08/05/17 10:15 Dose: 40 mg Polyethylene Glycol (Miralax) 17 gm PO BID [facility] Last Admin: 08/05/17 17:03 Dose: 17 gm Pregabalin (Lyrica) 100 mg PO [facility] Last Admin: 08/05/17 21:56 Dose: 100 mg Sitagliptin Phosphate (Januvia) 100 mg PO DAILY [facility] - Labs Labs: PT 10.5 Seconds (9.9-11.8) 08/04/17 16:30 INR 0.97 (0.93-1.08) 08/04/17 16:30 APTT 27.5 Seconds (23.7-30.8) 08/04/17 16:30 - Constitutional Appears: Non-toxic, No Acute Distress - Head Exam Head Exam: ATRAUMATIC, NORMAL INSPECTION, NORMOCEPHALIC - Eye Exam Eye Exam: EOMI Pupil Exam: NORMAL ACCOMODATION - ENT Exam ENT Exam: Mucous Membranes Moist - Neck Exam Neck Exam: Normal Inspection - Respiratory Exam Respiratory Exam: Clear to Ausculation Bilateral, NORMAL BREATHING PATTERN - Cardiovascular Exam Cardiovascular Exam: REGULAR RHYTHM - GI/Abdominal Exam GI & Abdominal Exam: Soft, Normal Bowel Sounds. absent: Distended, Tenderness - Extremities Exam Extremities Exam: absent: Joint Swelling, Tenderness - Back Exam Back Exam: absent: CVA tenderness (L), CVA tenderness (R) - Neurological Exam Neurological Exam: Alert, Awake, CN II-XII Intact, Oriented x3 Neuro motor strength exam: Left Upper Extremity: 5, Right Upper Extremity: 0, Left Lower Extremity: 5, Right Lower Extremity: 3 Additional comments: expressive aphasia. - Psychiatric Exam Psychiatric exam: Normal Affect, Normal Mood - Skin Skin Exam: Dry, Intact, Normal Color, Warm Assessment and Plan - Assessment and Plan (Free Text) Assessment: 57 y/o female with L. carotid stenosis * Patient has a 100% occlusion of the L. ICA. * No surgical intervention is needed at this time * We are signing off, please reconsult if necessary. Thank you
[2017-08-06] MEDS: POLYETHYLENE GLYCOL 3350 17 GM/Dose PACKET PO SCH ×2 (09:08→17:04)
[2017-08-06] MEDS: Pantoprazole 40 mg EC Tab PO SCH (09:08)
--- NOTE | 2017-08-06 09:41 | PN ---
SUBJECTIVE: The patient has no complaints of any chest pain, no shortness of breath. PHYSICAL EXAMINATION: VITAL SIGNS: Temperature is 98, pulse is 60, blood pressure 100/55, respirations 20. GENERAL: The patient is lying in bed, flat, comfortable. HEENT: No oral lesion. Anicteric sclerae. Moist mucosa. NECK: No JVD, adenopathy, or thyromegaly. CARDIOVASCULAR: S1 and S2, regular. No murmurs, rubs, or gallops. LUNGS: Clear to auscultation bilaterally. No wheeze, rales, or rhonchi. ABDOMEN: Bowel sounds are positive, soft, nontender and nondistended. EXTREMITIES: No cyanosis, clubbing or edema. IMAGING: The MRA of the neck and head had been reviewed as well as the carotid ultrasound. ASSESSMENT: 1. Occlusion of the left internal carotid artery. 2. Constipation. 3. Abdominal pain secondary to severe constipation. 4. Spinal stenosis. 5. Dyslipidemia. 6. Dysarthria. PLAN: The patient is currently comfortable. She is seen Dr. Jiménez, he has no further cardiac evaluation or intervention that needs to be done. The patient is being followed by Dr. Townsend for left carotid stenosis. We will await for their input. I also spoke with Dr. Hernandez regarding the carotid stenosis yesterday. I am going to continue with Lexapro IV her for anxiety and depression.. She is on Lipitor for dyslipidemia. She is receiving Lyrica for neuropathy. She is on glyburide for her diabetes. She is on Plavix daily. She is not on aspirin. Her sugars have been elevated. I have hold her metformin and I will put her on Januvia in place of her metformin for now. The patient is on lactulose and was given Fleet Enema yesterday and is on MiraLax as well. Aristides Roberts MD
[2017-08-06] MEDS ORDERED: Mineral Oil Enema 135 ml RC ONE (09:45)
--- NOTE | 2017-08-06 10:45 | CP.PCM.PN ---
<Layla Ruano - Last Filed: 08/06/17 10:40> Subjective - Date & Time of Evaluation Date of Evaluation: 08/06/17 Time of Evaluation: 08:00 - Subjective Subjective: GI PROGRESS NOTE FOR DR. PATIÑO Patient seen and examined at bedside. She reports having gas. States her last bowel movement was yesterday, although she still feels a little constipated. Denies other complaints. Objective - Vital Signs/Intake and Output Vital Signs (last 24 hours): Temp Pulse Resp BP Pulse Ox 98.2 F 60 18 106/56 L 94 L 08/06/17 07:30 08/06/17 07:30 08/06/17 07:30 08/06/17 07:30 08/06/17 07:30 Intake and Output: 08/06/17 08/06/17 06:59 18:59 Intake Total 720 Balance 720 - Medications Medications: Current Medications Amantadine HCl (Amantadine 100 Mg Cap) 100 mg PO BID [facility] Last Admin: 08/06/17 09:08 Dose: 100 mg Aspirin (Ecotrin) 81 mg PO DAILY [facility] Last Admin: 08/06/17 09:08 Dose: 81 mg Atorvastatin Calcium (Lipitor) 40 mg PO HS [facility] Last Admin: 08/05/17 21:56 Dose: 40 mg Baclofen (Lioresal) 10 mg PO TID [facility] Last Admin: 08/06/17 09:08 Dose: 10 mg Clopidogrel Bisulfate (Plavix) 75 mg PO DAILY [facility] Last Admin: 08/06/17 09:08 Dose: 75 mg Escitalopram Oxalate (Lexapro) 10 mg PO DAILY [facility] Last Admin: 08/06/17 09:08 Dose: 10 mg Glyburide (Micronase) 10 mg PO 0800,1700 [facility] Last Admin: 08/06/17 09:08 Dose: 10 mg Lactulose (Enulose) 30 gm PO HS [facility] Last Admin: 08/05/17 21:55 Dose: 30 gm Ondansetron HCl (Zofran Inj) 4 mg IVP Q4 PRN PRN Reason: Nausea/Vomiting Pantoprazole Sodium (Protonix Ec Tab) 40 mg PO DAILY [facility] Last Admin: 08/06/17 09:08 Dose: 40 mg Polyethylene Glycol (Miralax) 17 gm PO BID [facility] Last Admin: 08/06/17 09:08 Dose: 17 gm Pregabalin (Lyrica) 100 mg PO HS [facility] Last Admin: 08/05/17 21:56 Dose: 100 mg Sitagliptin Phosphate (Januvia) 100 mg PO DAILY [facility] Last Admin: 08/06/17 09:08 Dose: 100 mg - Labs Labs: PT 10.5 Seconds (9.9-11.8) 08/04/17 16:30 INR 0.97 (0.93-1.08) 08/04/17 16:30 APTT 27.5 Seconds (23.7-30.8) 08/04/17 16:30 - Constitutional Appears: Non-toxic, No Acute Distress - Head Exam Head Exam: ATRAUMATIC, NORMAL INSPECTION - Respiratory Exam Respiratory Exam: NORMAL BREATHING PATTERN. absent: Respiratory Distress - Cardiovascular Exam Cardiovascular Exam: +S1, +S2 - GI/Abdominal Exam GI & Abdominal Exam: Firm (mild), Soft, Tenderness (mild). absent: Rigid, Rebound - Neurological Exam Additional comments: Right sided facial droop - Skin Skin Exam: Dry, Normal Color, Warm Assessment and Plan - Assessment and Plan (Free Text) Assessment: 57yo F with PMHx of HTN, DM, hyperlipidemia, left carotid stenosis, CVA of left MCA with right residual deficitis and expressive aphasisa who presented with diarrhea and abdominal pain. - Patient is on ASA and Plavix for carotid stenosis - No surgical intervention per vascular surgery due to degree of stenosis - Will do diagnostic colonoscopy (due to ASA and Plavix) electively as an outpatient - Discussed plan with Dr. Gayla Ruano PGY-3 <Tai Patiño V - Last Filed: 08/06/17 23:56> Objective - Vital Signs/Intake and Output Vital Signs (last 24 hours): Temp Pulse Resp BP Pulse Ox 97.9 F 68 18 106/56 L 96 08/06/17 16:00 08/06/17 16:00 08/06/17 16:00 08/06/17 07:30 08/06/17 16:00 Intake and Output: 08/06/17 08/07/17 18:59 06:59 Intake Total 540 420 Balance 540 420 - Medications Medications: Current Medications Amantadine HCl (Amantadine 100 Mg Cap) 100 mg PO BID [facility] Last Admin: 08/06/17 17:04 Dose: 100 mg Aspirin (Ecotrin) 81 mg PO DAILY [facility] Last Admin: 08/06/17 09:08 Dose: 81 mg Atorvastatin Calcium (Lipitor) 40 mg PO HS [facility] Last Admin: 08/06/17 21:49 Dose: 40 mg Baclofen (Lioresal) 10 mg PO TID [facility] Last Admin: 08/06/17 17:04 Dose: 10 mg Clopidogrel Bisulfate (Plavix) 75 mg PO DAILY [facility] Last Admin: 08/06/17 09:08 Dose: 75 mg Escitalopram Oxalate (Lexapro) 10 mg PO DAILY [facility] Last Admin: 08/06/17 09:08 Dose: 10 mg Glyburide (Micronase) 10 mg PO 0800,1700 [facility] Last Admin: 08/06/17 17:06 Dose: 10 mg Sodium Chloride (Sodium Chloride 0.45%) 1,000 mls @ 80 mls/hr IV .[id number] [facility] Stop: 08/09/17 08:00 Last Admin: 08/06/17 15:53 Dose: 80 mls/hr Ondansetron HCl (Zofran Inj) 4 mg IVP Q4 PRN PRN Reason: Nausea/Vomiting Pantoprazole Sodium (Protonix Ec Tab) 40 mg PO DAILY [facility] Last Admin: 08/06/17 09:08 Dose: 40 mg Polyethylene Glycol (Miralax) 17 gm PO BID [facility] Last Admin: 08/06/17 17:04 Dose: 17 gm Pregabalin (Lyrica) 100 mg PO HS [facility] Last Admin: 08/06/17 21:49 Dose: 100 mg Sitagliptin Phosphate (Januvia) 100 mg PO DAILY [facility] Last Admin: 08/06/17 09:08 Dose: 100 mg - Labs Labs: PT 10.5 Seconds (9.9-11.8) 08/04/17 16:30 INR 0.97 (0.93-1.08) 08/04/17 16:30 APTT 27.5 Seconds (23.7-30.8) 08/04/17 16:30 Attending/Attestation - Attestation I have personally seen and examined this patient.: Yes I have fully participated in the care of the patient.: Yes I have reviewed all pertinent clinical information, including history, physical exam and plan: Yes Notes (Text): This is an addendum to GI progress report dictated by Resident.The patient was seen and examined earlier. Medical records, lab studies, imagings were reviewed. Last 24 hours events reviewed. Agreed with the above treatment plan as outlined in Resident's notes the with the addition of the following start mag citrate
--- NOTE | 2017-08-06 14:38 | PN ---
DATE: 08/06/2017 SUBJECTIVE: The patient seen sitting in a chair on 5R. She continues to have some abdominal discomfort and this remains her most pressing issue. She is seen in the presence of her . 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 An MRA of the neck also suggest some subclavian and vertebral disease as well. She offers no new complaints with respect to her neurologic status. She has expressive aphasia as well as persistent right-sided weakness. CURRENT MEDICATIONS: Include amantadine, Ecotrin, Januvia, Lexapro, Baclofen, Lipitor, Lyrica, Micronase, MiraLax, Plavix, Protonix and Zofran. OBJECTIVE: VITAL SIGNS: Blood pressure 106/56, pulse of 60 and regular and respirations are 16. She is afebrile. NECK: No JVD. Left carotid bruit is noted. CHEST: Clear to auscultation and percussion. HEART: PMI in normal position. No pathological gallops noted. ABDOMEN: Soft, nontender. Normoactive bowel sounds. EXTREMITIES: Right hemiparesis is noted. DIAGNOSTIC DATA: Glucose is 151, hemoglobin A1c is 7.1. Vascular studies were reviewed with Dr. Zachery Castro. She does have what appears to be an acute thrombosis of the left internal carotid artery and the right vertebral artery appears fairly small with antegrade flow. MRA of the neck raises the suspicion of severe stenosis of the left vertebral artery as well as possible left subclavian stenosis. The right proximal internal artery is occluded and the right vertebral artery appears to be atretic. IMPRESSION: 1. Abdominal pain, etiology uncertain. 2. Cerebrovascular disease, which appears to have become progressive. RECOMMENDATIONS: 1. Lipid panel will be checked and may be advisable to increase the intensity of her statin therapy. 2. The aspirin and Plavix therapy should continue at this time after her GI issues have been adequately addressed and resolved. Consideration should be given to consultation regarding possible management of her subclavian and vertebral disease on the left. All the above is discussed with the patient and her and Dr. Castro. We will follow along as needed. Hernan Obrien MD [facility] # [id number]
[2017-08-06] MEDS ORDERED: Sodium Chloride 0.45% 1,000 ML IV SCH (15:45)
[2017-08-06] MEDS ORDERED: Magnesium Citrate Oral SOL (300 ml) PO ONE (18:42)
[2017-08-06] MEDS ORDERED: Bisacodyl 5mg EC Tab PO ONE (18:42)
[2017-08-07 04:15] VITALS: O2SAT 95
[2017-08-07] MEDS ORDERED: Nitroglycerin 50mg in D5W 50 MG/250 ML BOTTLE IV ONE (06:37)
[2017-08-07] MEDS ORDERED: Lidocaine 2% Inj (20ml) ONE (06:37)
[2017-08-07] MEDS ORDERED: Iodixanol 320 MG/ML 100 ML BOTTLE IV ONE (06:37)
[2017-08-07] MEDS ORDERED: Iodixanol 320 MG/ML 200 ML BOTTLE IV ONE (06:37)
[2017-08-07 06:51] LABS: CHOLESTEROL 137 mg/dL (130-200)
[2017-08-07] MEDS ORDERED: Midazolam 2 MG/2 ML VIAL ONE ×2 (07:10→07:46)
--- NOTE | 2017-08-07 07:20 | CP.PCM.PN ---
<Sayra Gonzalez - Last Filed: 08/07/17 13:14> Subjective - Date & Time of Evaluation Date of Evaluation: 08/07/17 Time of Evaluation: 07:16 - Subjective Subjective: Neurology Progress Note for Lucinda Vealsquez PGY2 Patient seen and examined at bedside. There were no acute overnight events as per nursing. Patient is resting comfortably in bed. She has still not been able to have a bowel movement. She denies having new numbness/tingling, vision changes, weakness, CP or SOB. Patient is scheduled for stent of subclavian by Dr. Zachery Castro today due to atherosclerotic disease seen on neck MRA. Objective - Vital Signs/Intake and Output Vital Signs (last 24 hours): Temp Pulse Resp BP Pulse Ox 97.9 F 61 20 97/56 L 95 08/07/17 00:01 08/07/17 00:01 08/07/17 00:01 08/07/17 00:01 08/07/17 00:01 Intake and Output: 08/07/17 08/07/17 06:59 18:59 Intake Total 660 Balance 660 - Medications Medications: Current Medications Amantadine HCl (Amantadine 100 Mg Cap) 100 mg PO BID [facility] Last Admin: 08/06/17 17:04 Dose: 100 mg Aspirin (Ecotrin) 81 mg PO DAILY [facility] Last Admin: 08/06/17 09:08 Dose: 81 mg Atorvastatin Calcium (Lipitor) 40 mg PO HS [facility] Last Admin: 08/06/17 21:49 Dose: 40 mg Baclofen (Lioresal) 10 mg PO TID [facility] Last Admin: 08/06/17 17:04 Dose: 10 mg Clopidogrel Bisulfate (Plavix) 75 mg PO DAILY [facility] Last Admin: 08/06/17 09:08 Dose: 75 mg Escitalopram Oxalate (Lexapro) 10 mg PO DAILY [facility] Last Admin: 08/06/17 09:08 Dose: 10 mg Glyburide (Micronase) 10 mg PO 0800,1700 [facility] Last Admin: 08/06/17 17:06 Dose: 10 mg Sodium Chloride (Sodium Chloride 0.45%) 1,000 mls @ 80 mls/hr IV .[id number] [facility] Stop: 08/09/17 08:00 Last Admin: 08/06/17 15:53 Dose: 80 mls/hr Ondansetron HCl (Zofran Inj) 4 mg IVP Q4 PRN PRN Reason: Nausea/Vomiting Pantoprazole Sodium (Protonix Ec Tab) 40 mg PO DAILY [facility] Last Admin: 08/06/17 09:08 Dose: 40 mg Polyethylene Glycol (Miralax) 17 gm PO BID [facility] Last Admin: 08/06/17 17:04 Dose: 17 gm Pregabalin (Lyrica) 100 mg PO HS [facility] Last Admin: 08/06/17 21:49 Dose: 100 mg Sitagliptin Phosphate (Januvia) 100 mg PO DAILY [facility] Last Admin: 08/06/17 09:08 Dose: 100 mg - Labs Labs: PT 10.5 Seconds (9.9-11.8) 08/04/17 16:30 INR 0.97 (0.93-1.08) 08/04/17 16:30 APTT 27.5 Seconds (23.7-30.8) 08/04/17 16:30 - Constitutional Appears: No Acute Distress - Head Exam Head Exam: ATRAUMATIC, NORMAL INSPECTION, NORMOCEPHALIC - Eye Exam Eye Exam: EOMI, Normal appearance, PERRL Pupil Exam: NORMAL ACCOMODATION, PERRL - ENT Exam ENT Exam: Mucous Membranes Moist - Respiratory Exam Respiratory Exam: Clear to Ausculation Bilateral, NORMAL BREATHING PATTERN. absent: Rales, Rhonchi, Wheezes - Cardiovascular Exam Cardiovascular Exam: REGULAR RHYTHM, +S1, +S2. absent: Gallop, Rubs, Murmur - GI/Abdominal Exam GI & Abdominal Exam: Soft, Tenderness (RLQ/LLQ), Normal Bowel Sounds. absent: Rigid, Hernia, Mass, Rebound - Extremities Exam Extremities Exam: Normal Inspection. absent: Calf Tenderness, Pedal Edema - Neurological Exam Neurological Exam: Alert, Awake, Oriented x3 Neuro motor strength exam: Left Upper Extremity: 5, Right Upper Extremity: 0, Left Lower Extremity: 5, Right Lower Extremity: 4 Additional comments: R sided facial droop and expressive aphasia. Nonfunctional R arm. 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 Patient noted to have increased crying spells and confusion as per . This can be secondary to pseudobulbar affect. Patient has L carotid stenosis of 95% seen on CTA in 2016 and surgery was refused at the time. Neck MRA showed complete occlusion of internal carotid artery and R vertebral artery, mild atherosclerotic plaques in R proximal carotid artery without significant stenosis, and severe stenosis of L vertebral artery origin with cervical segment being dominant and widely patent. Head MRA showed diminutive L A1 segment and middle cerebral artery with attenuation of distal branches. Carotid U/S showed complete occlusion of L carotid and 20-39% stenosis of the R carotid Plan: - Surgery recs appreciated-No surgical intervention at this time - Continue ASA, Plavix and Lipitor - Continue Physical therapy/Speech therapy - Maintain euglycemia (140-180s)- HgbA1c noted to be 7.1 Patient will need to follow up with neurology as outpatient as well as continuing physical therapy and speech therapy. Case seen, discussed and reviewed with attending, Dr. Hernandez. Lucinda Gonzalez PGY2 <Arvind Hernandez - Last Filed: 08/07/17 14:37> Objective - Vital Signs/Intake and Output Vital Signs (last 24 hours): Temp Pulse Resp BP Pulse Ox 98 F 58 L 13 148/66 95 08/07/17 11:22 08/07/17 11:22 08/07/17 11:22 08/07/17 11:22 08/07/17 07:30 Intake and Output: 08/07/17 08/07/17 06:59 18:59 Intake Total 660 Balance 660 - Medications Medications: Current Medications Amantadine HCl (Amantadine 100 Mg Cap) 100 mg PO BID [facility] Last Admin: 08/07/17 12:40 Dose: Not Given Aspirin (Ecotrin) 81 mg PO DAILY [facility] Last Admin: 08/06/17 09:08 Dose: 81 mg Atorvastatin Calcium (Lipitor) 40 mg PO HS [facility] Last Admin: 08/06/17 21:49 Dose: 40 mg Baclofen (Lioresal) 10 mg PO TID [facility] Last Admin: 08/07/17 12:41 Dose: Not Given Clopidogrel Bisulfate (Plavix) 75 mg PO DAILY [facility] Last Admin: 08/06/17 09:08 Dose: 75 mg Escitalopram Oxalate (Lexapro) 10 mg PO DAILY [facility] Last Admin: 08/06/17 09:08 Dose: 10 mg Glyburide (Micronase) 10 mg PO 0800,1700 [facility] Last Admin: 08/06/17 17:06 Dose: 10 mg Sodium Chloride (Sodium Chloride 0.45%) 1,000 mls @ 80 mls/hr IV .[id number] [facility] Stop: 08/09/17 08:00 Last Admin: 08/06/17 15:53 Dose: 80 mls/hr Sodium Chloride (Sodium Chloride 0.45%) 1,000 mls @ 80 mls/hr IV .[id number] [facility] Last Admin: 08/07/17 12:00 Dose: 80 mls/hr Ondansetron HCl (Zofran Inj) 4 mg IVP Q4 PRN PRN Reason: Nausea/Vomiting Ondansetron HCl (Zofran Inj) 4 mg IVP ONCE PRN PRN Reason: Nausea/Vomiting Pantoprazole Sodium (Protonix Ec Tab) 40 mg PO DAILY [facility] Last Admin: 08/06/17 09:08 Dose: 40 mg Polyethylene Glycol (Miralax) 17 gm PO BID [facility] Last Admin: 08/07/17 12:42 Dose: Not Given Pregabalin (Lyrica) 100 mg PO HS [facility] Last Admin: 08/06/17 21:49 Dose: 100 mg Sitagliptin Phosphate (Januvia) 100 mg PO DAILY [facility] Last Admin: 08/06/17 09:08 Dose: 100 mg - Labs Labs: PT 10.5 Seconds (9.9-11.8) 08/04/17 16:30 INR 0.97 (0.93-1.08) 08/04/17 16:30 APTT 27.5 Seconds (23.7-30.8) 08/04/17 16:30 Attending/Attestation - Attestation I have personally seen and examined this patient.: Yes I have fully participated in the care of the patient.: Yes I have reviewed all pertinent clinical information, including history, physical exam and plan: Yes
[2017-08-07] MEDS ORDERED: DOPamine 400mg/250ml D5W 400 MG/250 ML BAG IV ONE (07:46)
[2017-08-07] MEDS ORDERED: Phenylephrine 10 mg/ml Inj ONE (07:58)
[2017-08-07] MEDS ORDERED: Mineral Oil Enema 135 ml RC ONE (11:43)
[2017-08-07] MEDS: Sodium Chloride 0.45% 1,000 ML IV SCH (12:00)
[2017-08-07] MEDS: POLYETHYLENE GLYCOL 3350 17 GM/Dose PACKET PO SCH ×2 (12:42→17:51)
[2017-08-07] MEDS ORDERED: Magnesium Citrate Oral SOL (300 ml) PO ONE ×2 (13:00→18:00)
--- NOTE | 2017-08-07 13:59 | CP.PCM.PN ---
<Gayla,Laceyl V - Last Filed: 08/07/17 23:32> Objective - Vital Signs/Intake and Output Vital Signs (last 24 hours): Temp Pulse Resp BP Pulse Ox 97.7 F 63 20 124/74 95 08/07/17 18:00 08/07/17 18:00 08/07/17 18:00 08/07/17 18:00 08/07/17 07:30 Intake and Output: 08/07/17 08/08/17 18:59 06:59 Intake Total 560 Balance 560 - Medications Medications: Current Medications Amantadine HCl (Amantadine 100 Mg Cap) 100 mg PO BID [facility] Last Admin: 08/07/17 18:00 Dose: 100 mg Aspirin (Ecotrin) 81 mg PO DAILY [facility] Last Admin: 08/07/17 17:50 Dose: 81 mg Atorvastatin Calcium (Lipitor) 40 mg PO HS [facility] Last Admin: 08/07/17 21:25 Dose: 40 mg Baclofen (Lioresal) 10 mg PO TID [facility] Last Admin: 08/07/17 17:51 Dose: 10 mg Clopidogrel Bisulfate (Plavix) 75 mg PO DAILY [facility] Last Admin: 08/07/17 17:51 Dose: 75 mg Escitalopram Oxalate (Lexapro) 10 mg PO DAILY [facility] Last Admin: 08/07/17 17:50 Dose: 10 mg Glyburide (Micronase) 10 mg PO 0800,1700 [facility] Last Admin: 08/07/17 17:51 Dose: 10 mg Sodium Chloride (Sodium Chloride 0.45%) 1,000 mls @ 80 mls/hr IV .[id number] [facility] Last Admin: 08/07/17 12:00 Dose: 80 mls/hr Ondansetron HCl (Zofran Inj) 4 mg IVP Q4 PRN PRN Reason: Nausea/Vomiting Pantoprazole Sodium (Protonix Ec Tab) 40 mg PO DAILY [facility] Last Admin: 08/07/17 17:51 Dose: 40 mg Polyethylene Glycol (Miralax) 17 gm PO BID [facility] Last Admin: 08/07/17 17:51 Dose: Not Given Pregabalin (Lyrica) 100 mg PO HS [facility] Last Admin: 08/07/17 21:25 Dose: 100 mg Sitagliptin Phosphate (Januvia) 100 mg PO DAILY [facility] Last Admin: 08/07/17 17:53 Dose: Not Given - Labs Labs: PT 10.5 Seconds (9.9-11.8) 08/04/17 16:30 INR 0.97 (0.93-1.08) 08/04/17 16:30 APTT 27.5 Seconds (23.7-30.8) 08/04/17 16:30 Attending/Attestation - Attestation I have personally seen and examined this patient.: Yes I have fully participated in the care of the patient.: Yes I have reviewed all pertinent clinical information, including history, physical exam and plan: Yes <Lara Garcias - Last Filed: 08/08/17 07:52> Subjective - Date & Time of Evaluation Date of Evaluation: 08/07/17 Time of Evaluation: 10:00 - Subjective Subjective: Seen and examined in PACU, patient is status post subclavian stent. The patient is awake and alert, magnesium citrate given last night and Dulcolax, patient denies bowel movement. Denies nausea, vomiting or abdominal pain. No reports of overt GI bleed. Objective - Vital Signs/Intake and Output Vital Signs (last 24 hours): Temp Pulse Resp BP Pulse Ox 98 F 58 L 13 148/66 95 08/07/17 11:22 08/07/17 11:22 08/07/17 11:22 08/07/17 11:22 08/07/17 07:30 Intake and Output: 08/07/17 08/07/17 06:59 18:59 Intake Total 660 Balance 660 - Medications Medications: Current Medications Amantadine HCl (Amantadine 100 Mg Cap) 100 mg PO BID [facility] Last Admin: 08/07/17 12:40 Dose: Not Given Aspirin (Ecotrin) 81 mg PO DAILY [facility] Last Admin: 08/06/17 09:08 Dose: 81 mg Atorvastatin Calcium (Lipitor) 40 mg PO HS [facility] Last Admin: 08/06/17 21:49 Dose: 40 mg Baclofen (Lioresal) 10 mg PO TID [facility] Last Admin: 08/07/17 12:41 Dose: Not Given Clopidogrel Bisulfate (Plavix) 75 mg PO DAILY [facility] Last Admin: 08/06/17 09:08 Dose: 75 mg Escitalopram Oxalate (Lexapro) 10 mg PO DAILY [facility] Last Admin: 08/06/17 09:08 Dose: 10 mg Glyburide (Micronase) 10 mg PO 0800,1700 [facility] Last Admin: 08/06/17 17:06 Dose: 10 mg Sodium Chloride (Sodium Chloride 0.45%) 1,000 mls @ 80 mls/hr IV .[id number] [facility] Stop: 08/09/17 08:00 Last Admin: 08/06/17 15:53 Dose: 80 mls/hr Sodium Chloride (Sodium Chloride 0.45%) 1,000 mls @ 80 mls/hr IV .[id number] [facility] Last Admin: 08/07/17 12:00 Dose: 80 mls/hr Ondansetron HCl (Zofran Inj) 4 mg IVP Q4 PRN PRN Reason: Nausea/Vomiting Ondansetron HCl (Zofran Inj) 4 mg IVP ONCE PRN PRN Reason: Nausea/Vomiting Pantoprazole Sodium (Protonix Ec Tab) 40 mg PO DAILY [facility] Last Admin: 08/06/17 09:08 Dose: 40 mg Polyethylene Glycol (Miralax) 17 gm PO BID [facility] Last Admin: 08/07/17 12:42 Dose: Not Given Pregabalin (Lyrica) 100 mg PO HS [facility] Last Admin: 08/06/17 21:49 Dose: 100 mg Sitagliptin Phosphate (Januvia) 100 mg PO DAILY [facility] Last Admin: 08/06/17 09:08 Dose: 100 mg - Labs Labs: PT 10.5 Seconds (9.9-11.8) 08/04/17 16:30 INR 0.97 (0.93-1.08) 08/04/17 16:30 APTT 27.5 Seconds (23.7-30.8) 08/04/17 16:30 - Constitutional Appears: No Acute Distress - Eye Exam Eye Exam: Normal appearance. absent: Scleral icterus - ENT Exam ENT Exam: Mucous Membranes Moist - Neck Exam Neck Exam: Normal Inspection - Respiratory Exam Respiratory Exam: NORMAL BREATHING PATTERN. absent: Respiratory Distress - Cardiovascular Exam Cardiovascular Exam: +S1, +S2 - GI/Abdominal Exam GI & Abdominal Exam: Soft, Normal Bowel Sounds. absent: Guarding, Tenderness, Rebound - Extremities Exam Extremities Exam: Normal Capillary Refill. absent: Pedal Edema - Neurological Exam Neurological Exam: Alert, Awake, Oriented x3 - Skin Skin Exam: Dry, Warm Assessment and Plan - Assessment and Plan (Free Text) Assessment: Assessment: Status post left vertebral stent CVA of left MCA with right-sided residual and expressive aphasia Left carotid stenosis Diarrhea now Constipation Hyperlipidemia Diabetes mellitus Hypertension Plan: Will give another dose of magnesium citrate Fleet oil enema 1 Continue GI prophylaxis Patient is on ASA and Plavix diet as tolerated. Consider elective outpatient diagnostic colonoscopy, as patient is on aspirin and Plavix Seen and discussed with Dr. Shukla
--- NOTE | 2017-08-07 17:29 | OP ---
PROCEDURE DATE: PREOPERATIVE DIAGNOSES: Left hemispheric stroke, left carotid occlusion, right vertebral artery occlusion, left vertebral artery ostial stenosis. POSTOPERATIVE DIAGNOSES: Left hemispheric stroke, left carotid occlusion, right vertebral artery occlusion, left vertebral artery ostial stenosis. PROCEDURE: Arch Aortogram, Cerebral Angiogram, Carotid Angiogram, Vertebral Angiogram, Left Vertebral Artery Angioplasty and Stent SURGEON: Silvia Townsend MD [employer] MECH[employer]IC: Zachery Castro MD TYPE OF ANESTHESIA: Local IV sedation. DESCRIPTION OF PROCEDURE: The patient was brought to the cardiac radiographer cardiac catheterization and placed supine on the table. After adequate general anesthesia had been accomplished, both groin were ChloraPrep and draped out as a sterile field. The right femoral artery was cannulated with a micropuncture kit and a guidewire passed into the ascending aorta. The Microsheath was exchanged for 5-Marshallese sheath and a Carl type of catheter was passed over the guidewire to the ascending aorta, just proximal to the innominate artery. Arch aortogram was performed, which confirmed the presence of the right vertebral artery occlusion and right carotid appeared to be normal. The left carotid is occluded and the left vertebral artery has an ostial stenosis, approximately 80%. Also, the patient has a bovine arch. After this, the innominate artery was cannulated and the catheter passed into the left carotid artery. Carotid angiogram was performed showing occlusion of the internal carotid artery. Next, oblique view of the left vertebral artery, which is approximately 5 to 6 mm in diameter was performed, indeed the left vertebral artery has 80% ostial stenosis. After this, the catheter and 5-Marshallese sheath was exchanged for a 65-cm 6-Marshallese sheath. This was passed into the subclavian artery. There is a mild subclavian stenosis as noted on the MRI. Pressure pull-through showed that there is only a 6-mm pressure gradient, so we elected not to perform any angioplasty of that. After that vertebral artery was cannulated with 0.14 wire, which was passed into the vertebral artery at the level of the neck. All of this was performed with the patient systemically anticoagulated. The ostial lesion was dilated with a 5-Marshallese x 40 mm balloon and a 6 x 18 balloon extendable stent was deployed just proximal to the ostia. Completion angiogram showed patency of the vertebral artery and back flowing the right hemisphere via the posterior communicating artery. After completion of the cerebral angiogram, the sheath was pulled and the puncture site was closed with Perclose. The patient tolerated the procedure well and was returned to the recovery room in good condition. Silvia Townsend MD [facility]
[2017-08-07] MEDS: Pantoprazole 40 mg EC Tab PO SCH (17:51)
--- NOTE | 2017-08-07 18:54 | VASCULAR ---
PROCEDURE: 1. Arch arteriogram 2. Left carotid arteriogram. 3. Left vertebral arteriogram. 4. Left vertebral artery origin angioplasty and stent placement. HISTORY: Vasculopath. Previous left hemispheric CVA. Left ICA occlusion. Right vertebral artery occlusion. Severe stenosis left vertebral artery origin. Possible left subclavian stenosis. PHYSICIAN(S): Silvia Castro MD. TECHNIQUE: The relative risks and indications of the procedure were explained to the patient's and consent obtained. The patient was on Plavix prior to procedure. The patient was placed supine on the arteriogram table and the right groin prepped and draped in usual sterile fashion. Conscious sedation monitoring were provided throughout the procedure by a nurse. Via a right common femoral artery approach, a 5 Lithuanian sheath was placed. Through the sheath and over a guidewire 5 Lithuanian flush catheter was placed in the ascending aorta and an ROMANSH DSA arch arteriogram performed. The catheter was exchanged for a 5 Lithuanian Carl A1 catheter placed in the mid left common carotid artery. A DSA left carotid arteriogram consisting of an oblique view of the bifurcation and intracranial circulation. Next a catheter was placed in the left subclavian artery. Two views of the proximal left subclavian artery was performed. 0.035 Vásquez wire was placed in the left brachial artery. A 6 Lithuanian 70 cm sheath was placed in the left subclavian artery. Pull-back pressures were obtained across the left subclavian stenosis. A mild 10-12 mm gradient was demonstrated. 5 Lithuanian day this catheter was placed the origin of left vertebral artery. 0.014 guidewire was used to cross the severe stenosis. The left vertebral artery origin was dilated with 5 mm balloon. Next a 6 mm by 19 mm balloon expandable stent was deployed the origin of the left vertebral artery. Completion angiograms were obtained. The sheath was removed hemostasis obtained. The patient tolerated the procedure well. FINDINGS: The arch arteriogram demonstrates a bovine arch. There is a 50 percent stenosis of the proximal left subclavian artery. No significant gradient was demonstrated in the lesion was not treated. The left internal carotid artery is chronically occluded. No string sign is present. There is a 30 percent smooth stenosis of the proximal right internal carotid artery. The right external carotid artery is widely patent. The right vertebral artery is not opacified and presumed to be occluded. There is a large dominant left vertebral artery present. There is an 80 percent stenosis at the origin of left vertebral artery. The basilar artery is normal. There is a patent P com artery with opacification of the left MCA distribution after successful placement of the left vertebral stent. IMPRESSION: 1. 80 percent focal stenosis of the left vertebral artery origin. 2. Successful left vertebral artery origin angioplasty and stent placement. 3. Occluded right vertebral artery. 4. Chronically occluded left internal carotid artery. 5. 30 percent mild stenosis of the proximal right internal carotid artery.
--- NOTE | 2017-08-07 20:31 | CP.PCM.PN ---
Subjective - Date & Time of Evaluation Date of Evaluation: 08/07/17 Time of Evaluation: 20:27 - Subjective Subjective: Patient was seen at bedside. Because her right foot was colder and right dorsalis pedis Awas not palpable by doppler. When we tried, we were able to feel pulse of right dorsalis pedis A. Right foot was cool. Right groin area had no hematoma. We were able to feel left posterior tibialis anterior A. But not able to feel left dorsalis pedis artery. Patient had no complaint of pain, tingling, numbness in either foot. Will monitor. Discussed with Dr.Peter Castro. Objective - Vital Signs/Intake and Output Vital Signs (last 24 hours): Temp Pulse Resp BP Pulse Ox 97.7 F 63 20 124/74 95 08/07/17 18:00 08/07/17 18:00 08/07/17 18:00 08/07/17 18:00 08/07/17 07:30 Intake and Output: 08/07/17 08/08/17 18:59 06:59 Intake Total 560 Balance 560 - Medications Medications: Current Medications Amantadine HCl (Amantadine 100 Mg Cap) 100 mg PO BID [facility] Last Admin: 08/07/17 18:00 Dose: 100 mg Aspirin (Ecotrin) 81 mg PO DAILY [facility] Last Admin: 08/07/17 17:50 Dose: 81 mg Atorvastatin Calcium (Lipitor) 40 mg PO HS [facility] Last Admin: 08/06/17 21:49 Dose: 40 mg Baclofen (Lioresal) 10 mg PO TID [facility] Last Admin: 08/07/17 17:51 Dose: 10 mg Clopidogrel Bisulfate (Plavix) 75 mg PO DAILY [facility] Last Admin: 08/07/17 17:51 Dose: 75 mg Escitalopram Oxalate (Lexapro) 10 mg PO DAILY [facility] Last Admin: 08/07/17 17:50 Dose: 10 mg Glyburide (Micronase) 10 mg PO 0800,1700 [facility] Last Admin: 08/07/17 17:51 Dose: 10 mg Sodium Chloride (Sodium Chloride 0.45%) 1,000 mls @ 80 mls/hr IV .[id number] [facility] Last Admin: 08/07/17 12:00 Dose: 80 mls/hr Ondansetron HCl (Zofran Inj) 4 mg IVP Q4 PRN PRN Reason: Nausea/Vomiting Pantoprazole Sodium (Protonix Ec Tab) 40 mg PO DAILY [facility] Last Admin: 08/07/17 17:51 Dose: 40 mg Polyethylene Glycol (Miralax) 17 gm PO BID [facility] Last Admin: 08/07/17 17:51 Dose: Not Given Pregabalin (Lyrica) 100 mg PO HS [facility] Last Admin: 08/06/17 21:49 Dose: 100 mg Sitagliptin Phosphate (Januvia) 100 mg PO DAILY [facility] Last Admin: 08/07/17 17:53 Dose: Not Given - Labs Labs: PT 10.5 Seconds (9.9-11.8) 08/04/17 16:30 INR 0.97 (0.93-1.08) 08/04/17 16:30 APTT 27.5 Seconds (23.7-30.8) 08/04/17 16:30
[2017-08-08] MEDS: Sodium Chloride 0.45% 1,000 ML IV SCH (00:41)
[2017-08-08 01:16] VITALS: RESP 18
--- NOTE | 2017-08-08 05:36 | DS ---
HISTORY OF PRESENT ILLNESS: This is a 57-year-old female who had come to the hospital complaining of vague abdominal pain. She has had a CAT scan done that showed constipation. She has a history of CVA with right-sided residual weakness. The patient's has at home and trying to care for his as she has made improvement in the past. She is able to ambulate and she does have aphagia, but he is able to get her needs met through answering yes to no questions. She had a carotid artery ultrasound, neck MRA and head MRA that was done. She was found to have left carotid artery stenosis with total occlusion. She had consultation with neurology and vascular surgery. It was felt that because she has 100% occlusion, there is no surgical intervention that is needed. The patient was given laxatives to have bowel movements. She is currently comfortable. She has no complaints of any chest pain or shortness of breath. She had cardiology and neurology evaluation. No other intervention is going to be needed. Her fingerstick has been well controlled. Her glucose here last time was 106, this morning her glucose is 187. She was started on Januvia to help control her diabetes better. The patient had been on metformin at home. She has no complaints of any headache or dizziness. No nausea. PHYSICAL EXAMINATION: VITAL SIGNS: Temperature is 97.9, pulse is 61, blood pressure is 97/56, and respirations 20. GENERAL: The patient is lying in bed, flat, comfortable. HEENT: No oral lesion. Anicteric sclerae. Moist mucosa. NECK: No JVD, adenopathy, or thyromegaly. CARDIOVASCULAR: S1 and S2, regular. No murmurs, rubs, or gallops. LUNGS: Clear to auscultation bilaterally. No wheeze, rales, or rhonchi. ABDOMEN: Bowel sounds are positive, soft, nontender and nondistended. EXTREMITIES: No cyanosis, clubbing or edema. ASSESSMENT: 1. 100% occlusion of the left internal carotid artery. 2. Constipation. 3. Abdominal pain secondary to constipation. 4. Spinal stenosis. 5. Dyslipidemia. 6. Aphagia. PLAN: The patient is currently comfortable. The patient is being seen by Dr. Castro. The patient is on Lipitor for dyslipidemia. She is on MiraLax for constipation. The patient is on Zofran and is on Lexapro for her anxiety and depression. I did speak to Dr. Shukla regarding this case. Condition is stable. Activities increase as tolerated. Aristides Roberts MD
[2017-08-08 06:22] VITALS: BP 92/50; TEMP 98.8
--- NOTE | 2017-08-08 06:55 | CP.PCM.PN ---
<Sayra Gonzalez - Last Filed: 08/08/17 10:23> Subjective - Date & Time of Evaluation Date of Evaluation: 08/08/17 Time of Evaluation: 06:52 - Subjective Subjective: Neurology Progress Note for Lucinda Velasquez PGY2 Patient seen and examined at bedside. As per nursing, overnight the patient had decreased pedal pulses on the R, but were able to obtain +2 pulses this AM. She is s/p L vertebral stent. Patient is resting in bed comfortably. She denies weakness, CP, vision changes, SOB, n/v/d, numbness/tingling. Objective - Vital Signs/Intake and Output Vital Signs (last 24 hours): Temp Pulse Resp BP Pulse Ox 98.8 F 66 18 92/50 L 95 08/08/17 06:00 08/08/17 06:00 08/08/17 06:00 08/08/17 06:00 08/08/17 06:00 Intake and Output: 08/07/17 08/08/17 18:59 06:59 Intake Total 2059 Balance 2059 - Medications Medications: Current Medications Amantadine HCl (Amantadine 100 Mg Cap) 100 mg PO BID [facility] Last Admin: 08/07/17 18:00 Dose: 100 mg Aspirin (Ecotrin) 81 mg PO DAILY [facility] Last Admin: 08/07/17 17:50 Dose: 81 mg Atorvastatin Calcium (Lipitor) 40 mg PO HS [facility] Last Admin: 08/07/17 21:25 Dose: 40 mg Baclofen (Lioresal) 10 mg PO TID [facility] Last Admin: 08/07/17 17:51 Dose: 10 mg Clopidogrel Bisulfate (Plavix) 75 mg PO DAILY [facility] Last Admin: 08/07/17 17:51 Dose: 75 mg Escitalopram Oxalate (Lexapro) 10 mg PO DAILY [facility] Last Admin: 08/07/17 17:50 Dose: 10 mg Glyburide (Micronase) 10 mg PO 0800,1700 [facility] Last Admin: 08/07/17 17:51 Dose: 10 mg Ondansetron HCl (Zofran Inj) 4 mg IVP Q4 PRN PRN Reason: Nausea/Vomiting Pantoprazole Sodium (Protonix Ec Tab) 40 mg PO DAILY [facility] Last Admin: 08/07/17 17:51 Dose: 40 mg Polyethylene Glycol (Miralax) 17 gm PO BID [facility] Last Admin: 08/07/17 17:51 Dose: Not Given Pregabalin (Lyrica) 100 mg PO HS [facility] Last Admin: 08/07/17 21:25 Dose: 100 mg Sitagliptin Phosphate (Januvia) 100 mg PO DAILY [facility] Last Admin: 08/07/17 17:53 Dose: Not Given - Labs Labs: PT 10.5 Seconds (9.9-11.8) 08/04/17 16:30 INR 0.97 (0.93-1.08) 08/04/17 16:30 APTT 27.5 Seconds (23.7-30.8) 08/04/17 16:30 - Constitutional Appears: No Acute Distress - Head Exam Head Exam: ATRAUMATIC, NORMAL INSPECTION, NORMOCEPHALIC - Eye Exam Eye Exam: Normal appearance, PERRL Pupil Exam: NORMAL ACCOMODATION, PERRL - ENT Exam ENT Exam: Mucous Membranes Moist - Neck Exam Neck Exam: Full ROM - Respiratory Exam Respiratory Exam: Clear to Ausculation Bilateral, NORMAL BREATHING PATTERN. absent: Rales, Rhonchi, Wheezes - Cardiovascular Exam Cardiovascular Exam: REGULAR RHYTHM, +S1, +S2. absent: Gallop, Rubs, Murmur - GI/Abdominal Exam GI & Abdominal Exam: Soft, Tenderness (LLQ/RLQ), Normal Bowel Sounds. absent: Rigid, Mass, Rebound - Neurological Exam Neurological Exam: Alert, Awake, Oriented x3 Neuro motor strength exam: Left Upper Extremity: 5, Right Upper Extremity: 0, Left Lower Extremity: 5, Right Lower Extremity: 4 Additional comments: R sided facial droop, nonfunctional R arm - Psychiatric Exam Psychiatric exam: Normal Affect, Normal Mood - Skin Skin Exam: Dry, Intact, Normal Color, Warm Assessment and Plan - Assessment and Plan (Free Text) Assessment: This is a 57Y F with PMH HTN, DM, HLD, L carotid stenosis, CVA of L MCA with R residual deficits (2016) and expressive aphasia who came to ED for diarrhea and abdominal pain x 4 days. Patient noted to have increased crying spells and confusion as per . This can be secondary to pseudobulbar affect. Patient has L carotid stenosis of 95% seen on CTA in 2016 and surgery was refused at the time. Neck MRA showed complete occlusion of internal carotid artery and R vertebral artery, mild atherosclerotic plaques in R proximal carotid artery without significant stenosis, and severe stenosis of L vertebral artery origin with cervical segment being dominant and widely patent. Head MRA showed diminutive L A1 segment and middle cerebral artery with attenuation of distal branches. Carotid U/S showed complete occlusion of L carotid and 20-39% stenosis of the R carotid. Patient is s/p L vertebral stent POD #1. She tolerated the procedure well. Plan: - Continue Physical therapy - Continue Speech therapy - Continue ASA, Plavix and Lipitor - Maintain euglycemia (140-180s) Patient will need to follow up with neurology as outpatient as well as continuing physical therapy and speech therapy as outpatient. Case seen, discussed and reviewed with attending, Dr. Hernandez. Lucinda Gonzalez PGY2 <Arvind Hernandez - Last Filed: 08/08/17 10:35> Objective - Vital Signs/Intake and Output Vital Signs (last 24 hours): Temp Pulse Resp BP Pulse Ox 98.8 F 66 18 92/50 L 95 08/08/17 06:00 08/08/17 06:00 08/08/17 06:00 08/08/17 06:00 08/08/17 06:00 Intake and Output: 08/08/17 08/08/17 06:59 18:59 Intake Total 2060 120 Output Total 1300 Balance 2060 -1180 - Medications Medications: Current Medications Amantadine HCl (Amantadine 100 Mg Cap) 100 mg PO BID [facility] Last Admin: 08/08/17 10:23 Dose: 100 mg Aspirin (Ecotrin) 81 mg PO DAILY [facility] Last Admin: 08/08/17 10:23 Dose: 81 mg Atorvastatin Calcium (Lipitor) 40 mg PO HS [facility] Last Admin: 08/07/17 21:25 Dose: 40 mg Baclofen (Lioresal) 10 mg PO TID [facility] Last Admin: 08/08/17 10:23 Dose: 10 mg Clopidogrel Bisulfate (Plavix) 75 mg PO DAILY [facility] Last Admin: 08/08/17 10:23 Dose: 75 mg Escitalopram Oxalate (Lexapro) 10 mg PO DAILY [facility] Last Admin: 08/08/17 10:23 Dose: 10 mg Glyburide (Micronase) 10 mg PO 0800,1700 [facility] Last Admin: 08/08/17 08:38 Dose: 10 mg Ondansetron HCl (Zofran Inj) 4 mg IVP Q4 PRN PRN Reason: Nausea/Vomiting Pantoprazole Sodium (Protonix Ec Tab) 40 mg PO DAILY [facility] Last Admin: 08/08/17 10:24 Dose: 40 mg Polyethylene Glycol (Miralax) 17 gm PO BID [facility] Last Admin: 08/08/17 10:24 Dose: 17 gm Pregabalin (Lyrica) 100 mg PO HS [facility] Last Admin: 08/07/17 21:25 Dose: 100 mg Sitagliptin Phosphate (Januvia) 100 mg PO DAILY [facility] Last Admin: 08/08/17 10:23 Dose: 100 mg - Labs Labs: PT 10.5 Seconds (9.9-11.8) 08/04/17 16:30 INR 0.97 (0.93-1.08) 08/04/17 16:30 APTT 27.5 Seconds (23.7-30.8) 08/04/17 16:30 Attending/Attestation - Attestation I have personally seen and examined this patient.: Yes I have fully participated in the care of the patient.: Yes I have reviewed all pertinent clinical information, including history, physical exam and plan: Yes
--- NOTE | 2017-08-08 08:24 | PN ---
DATE: 08/08/2017 SUBJECTIVE: The patient has no complaints of any chest pain and no shortness of breath. No headaches and no dizziness. PHYSICAL EXAMINATION: VITAL SIGNS: Temperature is 98.9, pulse is 70, blood pressure is 113/63, and respirations are 18. GENERAL: The patient is lying in bed, flat, comfortable. HEENT: No oral lesion. Anicteric sclerae. Moist mucosa. NECK: No JVD, adenopathy, or thyromegaly. CARDIOVASCULAR: S1 and S2, regular. No murmurs, rubs, or gallops. LUNGS: Clear to auscultation bilaterally. No wheeze, rales, or rhonchi. ABDOMEN: Bowel sounds are positive, soft, nontender and nondistended. EXTREMITIES: No cyanosis, clubbing or edema. ASSESSMENT: 1. Left vertebral artery origin angioplasty and stent placement. 2. Occluded right vertebral artery. 3. Chronically occluded left internal carotid artery. 4. Constipation. 5. Dyslipidemia. 6. Diabetes type 2. 7. Hypotension. 8. Aphasia. a. dysarthria. 9. Spinal stenosis. PLAN: The patient is currently comfortable. She is on her amantadine. She is going to continue with Januvia for her diabetes. She is on Lexapro for her anxiety. The patient is on Lipitor for dyslipidemia. She is on glyburide for her diabetes. She is on MiraLax for constipation. The patient is on Protonix daily. She is on aspirin and Plavix per neurology. She is initially just on Plavix. Physical therapy has evaluated the patient and recommended home with outpatient PT. Aristides Roberts MD
[2017-08-08] MEDS: POLYETHYLENE GLYCOL 3350 17 GM/Dose PACKET PO SCH ×3 (10:24→17:26)
[2017-08-08] MEDS: Pantoprazole 40 mg EC Tab PO SCH (10:24)
[2017-08-08] MEDS ORDERED: Mineral Oil Enema 135 ml RC ONE (12:29)
--- NOTE | 2017-08-08 12:35 | CP.PCM.PN ---
<Lara Garcias - Last Filed: 08/08/17 12:34> Subjective - Date & Time of Evaluation Date of Evaluation: 08/08/17 Time of Evaluation: 12:30 - Subjective Subjective: S&E at bedside, present, pt refuse enema yesterday, report small stool, no N/V or abdominal pain, took magnesium citrate yesterday. No reports of bleeding. S/P vertebral stent yesterday. Tolerating oral intake. No report of overt GI bleed. Objective - Vital Signs/Intake and Output Vital Signs (last 24 hours): Temp Pulse Resp BP Pulse Ox 98.8 F 72 18 92/50 L 95 08/08/17 06:00 08/08/17 10:00 08/08/17 06:00 08/08/17 06:00 08/08/17 06:00 Intake and Output: 08/08/17 08/08/17 06:59 18:59 Intake Total 2060 120 Output Total 1300 Balance 2060 -1180 - Medications Medications: Current Medications Amantadine HCl (Amantadine 100 Mg Cap) 100 mg PO BID [facility] Last Admin: 08/08/17 10:23 Dose: 100 mg Aspirin (Ecotrin) 81 mg PO DAILY [facility] Last Admin: 08/08/17 10:23 Dose: 81 mg Atorvastatin Calcium (Lipitor) 40 mg PO HS [facility] Last Admin: 08/07/17 21:25 Dose: 40 mg Baclofen (Lioresal) 10 mg PO TID [facility] Last Admin: 08/08/17 10:23 Dose: 10 mg Clopidogrel Bisulfate (Plavix) 75 mg PO DAILY [facility] Last Admin: 08/08/17 10:23 Dose: 75 mg Escitalopram Oxalate (Lexapro) 10 mg PO DAILY [facility] Last Admin: 08/08/17 10:23 Dose: 10 mg Glyburide (Micronase) 10 mg PO 0800,1700 [facility] Last Admin: 08/08/17 08:38 Dose: 10 mg Mineral Oil (Fleet Mineral Oil Enema) 135 ml RC ONCE ONE Stop: 08/08/17 12:30 Ondansetron HCl (Zofran Inj) 4 mg IVP Q4 PRN PRN Reason: Nausea/Vomiting Pantoprazole Sodium (Protonix Ec Tab) 40 mg PO DAILY [facility] Last Admin: 08/08/17 10:24 Dose: 40 mg Polyethylene Glycol (Miralax) 17 gm PO BID [facility] Last Admin: 08/08/17 10:24 Dose: 17 gm Pregabalin (Lyrica) 100 mg PO HS [facility] Last Admin: 08/07/17 21:25 Dose: 100 mg Sitagliptin Phosphate (Januvia) 100 mg PO DAILY [facility] Last Admin: 08/08/17 10:23 Dose: 100 mg - Labs Labs: PT 10.5 Seconds (9.9-11.8) 08/04/17 16:30 INR 0.97 (0.93-1.08) 08/04/17 16:30 APTT 27.5 Seconds (23.7-30.8) 08/04/17 16:30 - Constitutional Appears: No Acute Distress - Head Exam Head Exam: NORMOCEPHALIC - Eye Exam Eye Exam: Normal appearance. absent: Scleral icterus - Neck Exam Neck Exam: Normal Inspection - Respiratory Exam Respiratory Exam: NORMAL BREATHING PATTERN. absent: Respiratory Distress - Cardiovascular Exam Cardiovascular Exam: +S1, +S2 - GI/Abdominal Exam GI & Abdominal Exam: Soft, Normal Bowel Sounds. absent: Guarding, Tenderness, Rebound - Extremities Exam Extremities Exam: absent: Calf Tenderness - Neurological Exam Neurological Exam: Alert, Awake, Oriented x3 (expressive aphasia) - Skin Skin Exam: Dry, Warm Assessment and Plan - Assessment and Plan (Free Text) Assessment: Assessment: Status post left vertebral stent CVA of left MCA with right-sided residual and expressive aphasia Left carotid stenosis Diarrhea now Constipation Hyperlipidemia Diabetes mellitus Hypertension Plan: Fleet oil enema 1, spoke to patient, agree to enema. Continue GI prophylaxis Patient is on ASA and Plavix Miralax BID diet as tolerated. Consider elective outpatient diagnostic colonoscopy, as patient is on aspirin and Plavix Seen and discussed with Dr. Shukla <Tai Shukla V - Last Filed: 08/08/17 23:32> Objective - Vital Signs/Intake and Output Vital Signs (last 24 hours): Temp Pulse Resp BP Pulse Ox 98.8 F 77 18 92/50 L 95 08/08/17 06:00 08/08/17 18:00 08/08/17 06:00 08/08/17 06:00 08/08/17 06:00 Intake and Output: 08/08/17 08/09/17 18:59 06:59 Intake Total 120 Output Total 1300 Balance -1180 - Medications Medications: Current Medications Amantadine HCl (Amantadine 100 Mg Cap) 100 mg PO BID [facility] Last Admin: 08/08/17 17:23 Dose: 100 mg Aspirin (Ecotrin) 81 mg PO DAILY [facility] Last Admin: 08/08/17 10:23 Dose: 81 mg Atorvastatin Calcium (Lipitor) 40 mg PO HS [facility] Last Admin: 08/07/17 21:25 Dose: 40 mg Baclofen (Lioresal) 10 mg PO TID [facility] Last Admin: 08/08/17 17:23 Dose: 10 mg Clopidogrel Bisulfate (Plavix) 75 mg PO DAILY [facility] Last Admin: 08/08/17 10:23 Dose: 75 mg Escitalopram Oxalate (Lexapro) 10 mg PO DAILY [facility] Last Admin: 08/08/17 10:23 Dose: 10 mg Glyburide (Micronase) 10 mg PO 0800,1700 [facility] Last Admin: 08/08/17 17:07 Dose: 10 mg Ondansetron HCl (Zofran Inj) 4 mg IVP Q4 PRN PRN Reason: Nausea/Vomiting Pantoprazole Sodium (Protonix Ec Tab) 40 mg PO DAILY [facility] Last Admin: 08/08/17 10:24 Dose: 40 mg Polyethylene Glycol (Miralax) 17 gm PO BID [facility] Last Admin: 08/08/17 17:26 Dose: Not Given Pregabalin (Lyrica) 100 mg PO [facility] Last Admin: 08/07/17 21:25 Dose: 100 mg Sitagliptin Phosphate (Januvia) 100 mg PO DAILY [facility] Last Admin: 08/08/17 10:23 Dose: 100 mg - Labs Labs: PT 10.5 Seconds (9.9-11.8) 08/04/17 16:30 INR 0.97 (0.93-1.08) 08/04/17 16:30 APTT 27.5 Seconds (23.7-30.8) 08/04/17 16:30 Attending/Attestation - Attestation I have personally seen and examined this patient.: Yes I have fully participated in the care of the patient.: Yes I have reviewed all pertinent clinical information, including history, physical exam and plan: Yes Notes (Text): p 08/08/17 23:32
[2017-08-08 18:18] VITALS: PULSE 77
== END 2017-08-08 15:00 | disposition home health service (06) | DRG 38 ==
LOC: ED 14:51 → ERH 20:10 → OBSVTOIN 20:40 → ERH 23:16 → 5RNO 23:58 → 2RSO 08-07 11:52
PROVIDERS: ADMIT Internal Medicine Nephrology; ATTEND Internal Medicine Nephrology
PROC: 037 Upper Arteries, Dilation (ICD-10-PCS; principal; 2017-08-07)
PROC: B3171ZZ Fluoroscopy of Left Internal Carotid Artery using Low Osmolar Contrast (ICD-10-PCS; 2017-08-07)
PROC: B31F1ZZ Fluoroscopy of Left Vertebral Artery using Low Osmolar Contrast (ICD-10-PCS; 2017-08-07)
DX: I65.03 Occlusion and stenosis of bilateral vertebral arteries (principal); I65.23 Occlusion and stenosis of bilateral carotid arteries; I69.351 Hemiplegia and hemiparesis following cerebral infarction affecting right dominant side; I69.320 Aphasia following cerebral infarction; E11.40 Type 2 diabetes mellitus with diabetic neuropathy, unspecified; E86.0 Dehydration; I10 Essential (primary) hypertension; E78.5 Hyperlipidemia, unspecified; K59.00 Constipation, unspecified; M48.00 Spinal stenosis, site unspecified; F41.9 Anxiety disorder, unspecified; K80.20 Calculus of gallbladder without cholecystitis without obstruction; R47.1 Dysarthria and anarthria; F48.2 Pseudobulbar affect; R19.7 Diarrhea, unspecified; Z79.02 Long term (current) use of antithrombotics/antiplatelets; Z87.891 Personal history of nicotine dependence